=== PATIENT | male | born 1940 | race Caucasian/White ===

== ENCOUNTER → 2017-09-29 10:27 | Outpatient (CLI) | payer MEDICARE, OTHER ==
[2016-05-05 10:08] VITALS: BMI 28.8
[~2017-09-29 10:27] MED LIST: BAYER CHEWABLE81 MG PO; COZAAR50 MG PO; FLUTICASONE PRO16 GM NASAL; HYDROCODONE-APA1 TAB PO; LIPITOR40 MG PO; METAMUCIL PACKE1 PKT PO; PROBIOTIC1 EAC1 PO; TRILIPIX135 MG PO
== END | disposition home or self-care (01) ==
LOC: D.MRI 10:27
DX: M54.5 Low back pain (principal)

== ENCOUNTER 2017-12-31 05:00 | Day surgery (SDC) | payer MEDICARE, OTHER ==
[2017-12-30 11:43] LABS: HEMATOCRIT 42.2 % (42.0-54.0); HEMOGLOBIN 14.4 g/dL (13.5-17.5); MCH 35.4 pg (26.0-34.0); MCHC 34.1 g/dL (31.0-37.0); MCV 103.7 fL (80.0-100.0); MEAN PLATELET VOLUME 8.8 fL (7.4-10.4); RBC 4.07 10x6/uL (4.20-6.10); RDW 12.7 % (11.5-14.5)
[2017-12-30 11:58] LABS: INR 0.98 (0.85-1.17); PROTIME 12.6 SECONDS (11.6-15.0)
[~2017-12-31] VITALS: Ht 175.3 cm; Wt 95.3 kg
--- NOTE | ~2017-12-31 | OP ---
PATIENT NAME: JESUS ALBERTO KUMAR MEDICAL RECORD: [id number] :44 LOCATION:SHE ADMISSION DATE: SURGEON: MOODY SOLER MD DATE OF OPERATION: 12/31/2017 PREOPERATIVE DIAGNOSES: Lumbar spinal stenosis and foraminal stenosis at L4-L5 and L5-S1, right with right L5 and S1 radiculopathy secondary to lumbar spinal stenosis. PROCEDURE: Lumbar laminectomy, medial facetectomy and foraminotomy at L4-L5 and L5-S1 on the right with METRx retractor. DESCRIPTION OF TECHNIQUE: After induction of general endotracheal anesthesia, the patient was rolled prone on a Naren frame. Lumbar spine was prepped and draped in usual sterile fashion. Fluoroscopic x-ray and spinal needle localized at L4-L5 interspace on the right side. A series of dilators were used to advance a METRx retractor at L4-L5 interspace. This was confirmed with fluoroscopic x-ray. A Midas Usama drill and microscope were used to perform a laminectomy, medial facetectomy, and foraminotomy at L4-L5 and L5-S1 on the right. Hypertrophied ligamentum flavum was removed within the canal as well as the foramina at both levels. The L5 nerve roots followed from its transiting portion to its existing portion. It was decompressed throughout its entire course. The S1 nerve root was decompressed within its transiting course. Meticulous hemostasis was maintained throughout the wound, but excellent decompression of both nerves was accomplished. The METRx retractor was removed. The fascia was closed with 2-0 Vicryl suture. The subdermal layer was closed with 3-0 Vicryl suture. The skin was closed with dany. A sterile dressing was applied to the wound. The patient was awakened in good condition and taken to recovery. All counts were reported as correct. Estimated blood loss was minimal. TRANSINT:[id number] Voice Confirmation ID: [id number] DOCUMENT ID: [id number] MOODY SOLER MD at 2233 CC: [id number] DICTATION DATE: 01/10/18 1050 AUTOMOTIVE TITLE CLERK: 01/10/18 1146 [facility] 12/31/17 [place] [address]
[~2017-12-31 05:00] MED LIST changes: +COLACE50 MG/5 ML
[2017-12-31 06:09] VITALS: Ht 175.3 cm; Wt 95.3 kg
[2018-01-01] MEDS ORDERED: HYDROCODONE-APA1 TAB PO (19:40)
[2018-01-01] MEDS ORDERED: PERI-COLACE TAB1 TAB PO (23:04)
== END 2017-12-31 11:00 | disposition home or self-care (01) ==
LOC: D.OPS 05:00 → D.PAN 07:30 → D.OPS 11:00
PROVIDERS: Anesthesiology
DX: M48.061 Spinal stenosis, lumbar region without neurogenic claudication (principal); M48.07 Spinal stenosis, lumbosacral region; M54.16 Radiculopathy, lumbar region; Z01.812 Encounter for preprocedural laboratory examination

== ENCOUNTER 2018-01-01 19:20 | Inpatient (IN) | payer MEDICARE, OTHER ==
[~2018-01-01] VITALS: Ht 175.3 cm; Wt 95.5 kg
[2018-01-01] MEDS ORDERED: HYDROCODONE-APA1 TAB PO (19:40)
[2018-01-01 20:15] LABS: BASOPHILS 0.2 % (0-2); EOSINOPHILS 0.6 % (0-7); HEMATOCRIT 39.9 % (42.0-54.0); HEMOGLOBIN 13.3 g/dL (13.5-17.5); IMMATURE GRANULOCYTES 0.2 % (0-5); LYMPHOCYTES 19.6 % (15-50); MCH 35.2 pg (26.0-34.0); MCHC 33.3 g/dL (31.0-37.0); MCV 105.6 fL (80.0-100.0); MEAN PLATELET VOLUME 8.6 fL (7.4-10.4); MONOCYTES 9.9 % (2-11); NEUTROPHILS 69.5 % (40-80); PLATELET COUNT 265 10x3/uL (130-400); RBC 3.78 10x6/uL (4.20-6.10); RDW 12.7 % (11.5-14.5); WBC 9.5 10x3/uL (4.8-10.8)
[2018-01-01 20:28] LABS: APPEARANCE CLEAR (CLEAR); BILIRUBIN NEGATIVE (NEGATIVE); COLOR YELLOW (YELLOW); GLUCOSE NEGATIVE (NEGATIVE); KETONE NEGATIVE (NEGATIVE); NITRITE NEGATIVE (NEGATIVE); PROTEIN NEGATIVE (NEGATIVE); UROBILINOGEN NORMAL (NORMAL)
[2018-01-01 20:31] LABS: ALBUMIN 3.6 g/dL (3.4-5.0); ANION GAP 12.2 mmol/L (8-16); BILIRUBIN - TOTAL 0.34 mg/dL (0.2-1.3); CALCIUM 10.3 mg/dL (8.5-10.1); CARBON DIOXIDE 29.1 mmol/L (21.0-32.0); CREATININE - SERUM 1.2 mg/dL (0.6-1.3); POTASSIUM - SERUM 4.3 mmol/L (3.5-5.1); PROTEIN - SERUM 7.5 g/dL (6.4-8.2)
[2018-01-01 21:05] VITALS: BP 136/80
[2018-01-01 22:06] VITALS: BP 130/66
[2018-01-01] MEDS ORDERED: PERI-COLACE TAB1 TAB PO (23:04)
[2018-01-01 23:25] VITALS: BP 128/85; Ht 175.3 cm; Wt 95.5 kg
[2018-01-01 23:26] VITALS: BP 128/85
[2018-01-02 04:00] VITALS: BP 112/60
[2018-01-02 08:00] VITALS: BP 123/68
[2018-01-02 10:06] LABS: BASOPHILS 0.3 % (0-2); HEMATOCRIT 36.5 % (42.0-54.0); HEMOGLOBIN 12.2 g/dL (13.5-17.5); IMMATURE GRANULOCYTES 0.3 % (0-5); LYMPHOCYTES 17.8 % (15-50); MCH 35.1 pg (26.0-34.0); MCHC 33.4 g/dL (31.0-37.0); MCV 104.9 fL (80.0-100.0); MEAN PLATELET VOLUME 8.4 fL (7.4-10.4); MONOCYTES 10.3 % (2-11); NEUTROPHILS 70.3 % (40-80); PLATELET COUNT 246 10x3/uL (130-400); RBC 3.48 10x6/uL (4.20-6.10); WBC 7.9 10x3/uL (4.8-10.8)
[2018-01-02 10:21] LABS: ALBUMIN 3.2 g/dL (3.4-5.0); BILIRUBIN - TOTAL 0.3 mg/dL (0.2-1.3); CALCIUM 9.4 mg/dL (8.5-10.1); CARBON DIOXIDE 30.1 mmol/L (21.0-32.0); CREATININE - SERUM 1.2 mg/dL (0.6-1.3); POTASSIUM - SERUM 4.1 mmol/L (3.5-5.1); PROTEIN - SERUM 6.9 g/dL (6.4-8.2)
[2018-01-02 12:50] VITALS: BP 122/70
[2018-01-02 15:36] VITALS: BP 126/67
[2018-01-02 16:34] LABS: ERYTHROCYTE SEDIMENTATION RATE 49 mm/hr (0-20)
[2018-01-02 19:47] VITALS: BP 116/73
[2018-01-02 23:37] VITALS: BP 112/65
[2018-01-03 03:39] VITALS: BP 116/43
[2018-01-03 05:11] LABS: BASOPHILS 0 % (0-2); EOSINOPHILS 0.1 % (0-7); HEMATOCRIT 37.7 % (42.0-54.0); HEMOGLOBIN 12.7 g/dL (13.5-17.5); IMMATURE GRANULOCYTES 0.1 % (0-5); LYMPHOCYTES 8.4 % (15-50); MCH 35.1 pg (26.0-34.0); MCHC 33.7 g/dL (31.0-37.0); MCV 104.1 fL (80.0-100.0); MEAN PLATELET VOLUME 8.5 fL (7.4-10.4); MONOCYTES 2.8 % (2-11); NEUTROPHILS 88.6 % (40-80); RBC 3.62 10x6/uL (4.20-6.10); RDW 12.6 % (11.5-14.5); WBC 7.5 10x3/uL (4.8-10.8)
[2018-01-03 05:31] LABS: PLATELET COUNT 304 10x3/uL (130-400)
[2018-01-03 05:40] LABS: ALBUMIN 3.1 g/dL (3.4-5.0); ANION GAP 11.8 mmol/L (8-16); BILIRUBIN - TOTAL 0.28 mg/dL (0.2-1.3); CALCIUM 9.2 mg/dL (8.5-10.1); CARBON DIOXIDE 29.7 mmol/L (21.0-32.0); CREATININE - SERUM 1.1 mg/dL (0.6-1.3); POTASSIUM - SERUM 4.5 mmol/L (3.5-5.1); PROTEIN - SERUM 7.4 g/dL (6.4-8.2)
[2018-01-03 08:35] VITALS: BP 135/77
[2018-01-03 13:59] VITALS: BP 124/70
[2018-01-03 16:44] VITALS: BP 117/56
[2018-01-03 21:09] VITALS: BP 104/74
[2018-01-03 23:39] VITALS: BP 125/71
[2018-01-04 03:44] VITALS: BP 115/57
[2018-01-04 03:47] VITALS: BP 112/67
[2018-01-04 05:56] LABS: BASOPHILS 0 % (0-2); EOSINOPHILS 0 % (0-7); IMMATURE GRANULOCYTES 0.1 % (0-5); LYMPHOCYTES 12.1 % (15-50); MCH 34.3 pg (26.0-34.0); MCHC 33.3 g/dL (31.0-37.0); MCV 102.9 fL (80.0-100.0); MEAN PLATELET VOLUME 8.7 fL (7.4-10.4); MONOCYTES 9.5 % (2-11); NEUTROPHILS 78.3 % (40-80); PLATELET COUNT 364 10x3/uL (130-400); RDW 12.6 % (11.5-14.5)
[2018-01-04 06:17] LABS: WBC 9.7 10x3/uL (4.8-10.8)
[2018-01-04 06:41] LABS: ALBUMIN 2.8 g/dL (3.4-5.0); ANION GAP 7.5 mmol/L (8-16); BILIRUBIN - TOTAL 0.25 mg/dL (0.2-1.3); CALCIUM 10.1 mg/dL (8.5-10.1); CARBON DIOXIDE 32.8 mmol/L (21.0-32.0); CREATININE - SERUM 1.2 mg/dL (0.6-1.3); POTASSIUM - SERUM 4.3 mmol/L (3.5-5.1); PROTEIN - SERUM 6.6 g/dL (6.4-8.2)
[2018-01-04 08:37] VITALS: BP 126/67
[2018-01-04] MEDS ORDERED: MEDROL DOSE PACK4 MG PO (12:47)
[2018-01-04] MEDS ORDERED: DOXYCYCLINE HY100 M2 PO (12:48)
== END 2018-01-04 14:01 | disposition home or self-care (01) | DRG 864 ==
LOC: D.ER 19:20 → D.MS 21:41 → D.EDHOLD 21:41 → D.MS 21:46
PROVIDERS: Family Medicine
DX: R50.82 Postprocedural fever (principal); I10 Essential (primary) hypertension; E78.5 Hyperlipidemia, unspecified; K21.9 Gastro-esophageal reflux disease without esophagitis; M62.830 Muscle spasm of back; Z98.890 Other specified postprocedural states; Z87.891 Personal history of nicotine dependence

== ENCOUNTER → 2018-02-15 09:52 | Outpatient (CLI) | payer MEDICARE, OTHER ==
[2018-01-01 23:25] VITALS: BMI 31.0
[~2018-02-15 09:52] MED LIST changes: +DOXYCYCLINE HY100 M2 PO; +MEDROL DOSE PACK4 MG PO; +PERI-COLACE TAB1 TAB PO
== END | disposition home or self-care (01) ==
LOC: D.RAD 09:52
DX: J01.90 Acute sinusitis, unspecified (principal)

== ENCOUNTER 2018-09-15 05:20 | Day surgery (SDC) | payer MEDICARE, OTHER ==
[2018-09-14 13:43] LABS: BASOPHILS 0.3 % (0-2); EOSINOPHILS 3.5 % (0-7); HEMATOCRIT 37.4 % (42.0-54.0); HEMOGLOBIN 12.5 g/dL (13.5-17.5); MCH 35.4 pg (26.0-34.0); MCHC 33.4 g/dL (31.0-37.0); MCV 105.9 fL (80.0-100.0); MEAN PLATELET VOLUME 8.4 fL (7.4-10.4); MONOCYTES 8.4 % (2-11); NEUTROPHILS 59.8 % (40-80); RBC 3.53 10x6/uL (4.20-6.10); RDW 12.5 % (11.5-14.5); WBC 6.3 10x3/uL (4.8-10.8)
[2018-09-14 13:51] LABS: PLATELET COUNT 211 10x3/uL (130-400)
[2018-09-14 13:55] LABS: ANION GAP 10.8 mmol/L (8-16); CALCIUM 9.4 mg/dL (8.5-10.1); CARBON DIOXIDE 31.6 mmol/L (21.0-32.0); CREATININE - SERUM 1.4 mg/dL (0.6-1.3); POTASSIUM - SERUM 4.4 mmol/L (3.5-5.1)
[2018-09-14 14:01] LABS: APTT 29.2 SECONDS (22.8-39.4); INR 1.06 (0.85-1.17); PROTIME 13.3 SECONDS (11.6-15.0)
[~2018-09-15] VITALS: Ht 175.3 cm; Wt 97.5 kg
--- NOTE | ~2018-09-15 | OP ---
PATIENT NAME: JESUS ALBERTO KUMAR MEDICAL RECORD: [id number] :44 LOCATION:SHE ADMISSION DATE: SURGEON: MOODY SOLER MD DATE OF OPERATION: 09/15/2018 DATE OF SERVICE: 09/15/2018 PREOPERATIVE DIAGNOSIS: Lumbar spinal stenosis at L3-L4 and L4-5 with right L3 and L4 radiculopathy. POSTOPERATIVE DIAGNOSIS: Lumbar spinal stenosis at L3-L4 and L4-5 with right L3 and L4 radiculopathy. PROCEDURE: Lumbar laminectomy, medial facetectomy and foraminotomy, L3-L4 and L4-L5 with redo L4-L5 on the right. PRIMARY CARE DOCTOR: Miguel العلي MD DESCRIPTION OF TECHNIQUE: After induction of general endotracheal anesthesia, the patient was rolled prone on a Naren frame. Lumbar spine was prepped and draped in the usual sterile fashion. Fluoroscopic x-ray and spinal needle localized the L3-L4 interspace on the right side. After infiltration of 1:100,000 epinephrine and lidocaine 1%, a stab incision was created with a #11 blade, a series of dilators were used to advance a METRx retractor at L3-L4 interspace on the right side. The level was confirmed with fluoroscopic x-ray. A microscope and Midas Usama drill were used to perform laminotomy, medial facetectomy and foraminotomy at L3-L4 on the right. Hypertrophied ligamentum flavum was removed with Cloward rongeurs. Next, dissection took place inferiorly at the L4-L5 interspace. The previous laminectomy was enlarged with Midas Usama drill under microscope illumination. Scar tissue was removed. Following this, the L3, L4 and L5 nerve roots appeared to be decompressed well. Meticulous hemostasis was maintained throughout the wound with the wounds irrigated with copious amounts of Ancef irrigant solution. The fascia was closed with 2-0 Vicryl suture. Subdermal layer was closed with 3-0 Vicryl suture. The skin was reapproximated with dany. A sterile dressing was applied to the wound. The patient was awakened in good condition, taken to recovery. All counts were reported as correct. Estimated blood loss was minimal. TRANSINT:[id number] Voice Confirmation ID: [id number] DOCUMENT ID: [id number] MOODY SOLER MD CC: [id number] DICTATION DATE: 09/26/18813 NEWS COMMENTATOR: 09/26/18 0906 [facility] 09/15/18 [facility] [address] [place] [address]
[~2018-09-15 05:20] MED LIST changes: +ADVIL200 MG PO; +DAYQUIL; +NYQUIL; +VITAMIN MULTI
[2018-09-15 06:08] VITALS: BP 120/73; Ht 175.3 cm; Wt 97.5 kg
[2018-09-15] MEDS ORDERED: HYDROCODON-ACE1 EA10 PO (12:27)
--- NOTE | 2018-09-15 13:30 | NUR ---
HOB RAISED, PATIENT MORE ALERT, DENIES PAIN. PATIENT CONTINUES FREQUENT BELCHING BUT DENIES NAUSEA, TOLERATING CLEAR LIQUIDS, DECLINES ANY FURTHER ADVANCEMENT OF DIET. THIS NURSE RECOMMENDS PATIENT SLOWLY ADVANCE DIET TOLERATED OVER THE COURSE OF THE DAY.
--- NOTE | 2018-09-15 13:50 | NUR ---
PATIENT AMBULATES AROUND ROOM WITH STAND-BY ASSIST OF THIS NURSE, AMBULATES WITHOUT UNSTEADINESS. PIV DC'D WITH TIP INTACT. PATIENT DRESSING IN PERSONAL CLOTHING WITH SPOUSE ASSISTANCE 4844 DISCHARGE INSTRUCTIONS REVIEWED WITH PATIENT AND SPOUSE, DISCHARGED HOME VIA WHEELCHAIR TO PRIVATE VEHICLE WITH SPOUSE
== END 2018-09-15 13:55 | disposition home or self-care (01) ==
LOC: D.OPS 05:20 → D.PAN 07:30 → D.OPS 07:30
PROVIDERS: Anesthesiology; ATTEND Neurological Surgery
DX: M48.061 Spinal stenosis, lumbar region without neurogenic claudication (principal); M54.16 Radiculopathy, lumbar region; Z01.812 Encounter for preprocedural laboratory examination

== ENCOUNTER → 2018-11-15 13:02 | Outpatient (CLI) | payer MEDICARE, OTHER ==
[2018-09-15 06:08] VITALS: BMI 31.8
[~2018-11-15 13:02] MED LIST changes: +HYDROCODON-ACE1 EA10 PO
== END | disposition home or self-care (01) ==
LOC: D.RAD 10-31 13:00 → D.US 10-31 13:00 → D.RAD 11-14 08:30
PROVIDERS: ATTEND Internal Medicine Gastroenterology
DX: K64.0 First degree hemorrhoids (principal); K57.30 Diverticulosis of large intestine without perforation or abscess without bleeding; K62.1 Rectal polyp

== ENCOUNTER → 2019-09-26 08:09 | Outpatient (CLI) | payer MEDICARE, OTHER ==
[2018-09-15 06:08] VITALS: BMI 31.8
--- NOTE | ~2019-09-26 | HEMODYNAMI ---
PATIENT:JESUS ALBERTO KUMAR MEDICAL RECORD: [id number] : 44 [id number] ADMISSION DATE: 09/26/19 Generatedon:09/26/20199:17 Patient name: JESUS ALBERTO KUMAR Patient #: [id number] SSN: : 1940 Date of study: 09/26/2019 Page: Of Hemodynamic Procedure Report Patient Data Patient Demographics Procedure consent was obtained First Name: JESUS ALBERTO Gender: Male Last Name: JOSÉ : 1940 [facility] Initial: TORRIE Age: 79 year(s) Patient #: [id number] Race: Additional ID: [id number] Contact details Address: [address] [place] [address] State: [place] City: [facility] Zip code: [address] Past Medical History Allergies: No known allergies Admission Admission Data Admission Date: 09/26/2019 Admission Time: 8:09 Procedure Procedure Types Cath Procedure Peripheral Cath Diagnostic Procedure Miscellaneous Aspiration/Injection (Joint) Procedure Description Procedure Date Procedure Date: 09/26/2019 Procedure Start Time: 8:59 Procedure Staff Name Function Babak Cerna MD Performing Physician Antoine Cabrera RT Monitor Procedure Data Cath Procedure Fluoroscopy Diagnostic fluoroscopy Total fluoroscopy Time: 0.9 time: 0.9 min min Diagnostic fluoroscopy Total fluoroscopy dose: 7 dose: 7 mGy mGy Hemodynamics Rest Pre Cath Intra NCS Post Cath Procedure Log Time Note 8:48:32 Antoine Cabrera RT (R) (CV) sent for patient. Start room use. 8:53:09 Time tracking: Regular hours (M-F 7:00 - 5:00) 8:53:16 Patient received from Other to IR Alert and oriented. Tansferred to table in Supine position. 8:53:19 Signed procedure consent form obtained from patient. 8:53:21 Correct patient and procedure confirmed by team. 8:53:23 Full Disclosure recording started 8:53:23 8:53:24 Pre-procedure instructions explained to patient. 8:53:25 Pre-op teaching completed and patient verbalized understanding. 8:53:38 Patient allergic to No known allergies 8:53:53 Is patient on blood thinner?No 8:54:02 Bilateral groins area was prepped with betadine and draped in sterile fashion 8:58:40 Physician arrived 8:58:41 --------ALL STOP TIME OUT------ 8:58:41 Final Timeout: patient, procedure, and site verified with staff and physician. All members of the team are in agreement. 8:58:44 Bilateral groins site verified by team. 8:58:49 Sedation plan: Local Anesthetic Medication:Lidocaine 8:59:03 Procedure started. 8:59:31 RIGT HIP INJECTED WITH 1% LIDOCAINE BY 8:59:40 SAFE-T BX TRAY opened to sterile field. 8:59:41 SAFE-T BX TRAY opened to sterile field. 9:08:22 RT HIP STABLE AND BANDAIDE APPLIED 9:08:40 LEFT HIP INJECTED 1% LIDOCAINE BY DR CERNA 9:14:24 10 CC ISOVUE 200 INJECTED TOTAL 9:16:33 Procedure ended.(Physican Out) 9:16:39 Fluoroscopy time 00.90 minutes. 9:16:43 Flurop Dose total: 7 9:16:43 Fluoroscopy dose: 7 mGy 9:17:11 BANDIADE APPLIED TO LEFT GROIN SITE STABLE PT SENT HOME Device Usage Item Manufacture Quantity Catalog Hospital Part Current Minimal Lot# / Name Number Charge Number Stock Stock Serial# Code SAFE-T Consensus Point 2 [id number] BX TRAY Signature Audit [place] Stage Time Signature Unsigned Intra-Procedure 09/26/2019 [facility] 9:17:37 [facility] [address] [place] [address]
== END | disposition home or self-care (01) ==
LOC: D.RAD 08:09
PROVIDERS: ATTEND Orthopaedic Surgery
DX: M16.11 Unilateral primary osteoarthritis, right hip (principal)

== ENCOUNTER → 2019-12-14 20:18 | Outpatient (CLI) | payer MEDICARE, OTHER ==
[2018-09-15 06:08] VITALS: BMI 31.8
== END | disposition home or self-care (01) ==
LOC: D.LABREF 20:18
PROVIDERS: ATTEND Orthopaedic Surgery
DX: M16.12 Unilateral primary osteoarthritis, left hip (principal)

== ENCOUNTER 2019-12-19 09:31 | Inpatient (IN) | payer MEDICARE, OTHER ==
[~2019-12-19] VITALS: Ht 175.3 cm; Wt 89.1 kg
[2019-12-19] MEDS ORDERED: FENOFIBRATE134 MG PO (16:36)
[2019-12-20 11:56] LABS: INR 0.97 (0.85-1.17); PROTIME 12.9 SECONDS (11.6-15.0)
[2019-12-20 11:57] LABS: APTT 28.6 SECONDS (22.8-39.4)
[2019-12-20 12:04] LABS: BASOPHILS 0.3 % (0-2); EOSINOPHILS 2.2 % (0-7); HEMATOCRIT 44.2 % (42.0-54.0); HEMOGLOBIN 14.5 g/dL (13.5-17.5); IMMATURE GRANULOCYTES 0.1 % (0-5); LYMPHOCYTES 26.8 % (15-50); MCH 34.7 pg (26.0-34.0); MCHC 32.8 g/dL (31.0-37.0); MCV 105.7 fL (80.0-100.0); MEAN PLATELET VOLUME 8.8 fL (7.4-10.4); MONOCYTES 7.9 % (2-11); NEUTROPHILS 62.7 % (40-80); PLATELET COUNT 247 10x3/uL (130-400); RBC 4.18 10x6/uL (4.20-6.10); RDW 13.5 % (11.5-14.5); WBC 6.8 10x3/uL (4.8-10.8)
[2019-12-20 12:13] LABS: BILIRUBIN NEGATIVE (NEGATIVE); GLUCOSE NEGATIVE (NEGATIVE); KETONE NEGATIVE (NEGATIVE); NITRITE NEGATIVE (NEGATIVE); UROBILINOGEN NORMAL (NORMAL)
[2019-12-20 13:04] LABS: CALCIUM 9.7 mg/dL (8.5-10.1); CARBON DIOXIDE 29.3 mmol/L (21.0-32.0); CREATININE - SERUM 1.4 mg/dL (0.6-1.3)
[2019-12-20 13:45] LABS: ANION GAP 10.7 mmol/L (8-16)
[2019-12-27] MEDS ORDERED: [UNRECOGNIZED DRUG - REMARK] (06:05)
[2019-12-27] MEDS ORDERED: PROBIOTIC250 MG PO (06:05)
[2019-12-27 06:06] VITALS: BP 124/65; BMI 29.0
--- NOTE | 2019-12-27 08:00 | NUR ---
THROUGH TRAFFIC KEPT TO A MINIMUM. HIBACLENS AND ALCOHOL USED TO PREP BEFORE CHLORAPREP. STERILE GOWNED AND GLOVED TO CHLORAPREP.
[2019-12-27 10:09] VITALS: BP 97/50
--- NOTE | 2019-12-27 10:30 | NUR ---
PATIENT IN BED WITH IV INTACT. NO COMPLAINTS OR SIGNS OF DISTRESS. VS STABLE. O2 ON AT 2 LNC. FAMILY AT BEDSIDE. CALLL IGHT WITHIN REACH. BSCDS ON AND WORKING.
[2019-12-27 10:50] LABS: ALBUMIN 3.1 g/dL (3.4-5.0); ANION GAP 8.5 mmol/L (8-16); BILIRUBIN - TOTAL 0.27 mg/dL (0.2-1.3); CALCIUM 8.7 mg/dL (8.5-10.1); CARBON DIOXIDE 27.8 mmol/L (21.0-32.0); CREATININE - SERUM 1.4 mg/dL (0.6-1.3); POTASSIUM - SERUM 5.3 mmol/L (3.5-5.1); PROTEIN - SERUM 5.4 g/dL (6.4-8.2)
[2019-12-27 10:51] LABS: BASOPHILS 0.1 % (0-2); EOSINOPHILS 0.6 % (0-7); HEMATOCRIT 35.9 % (42.0-54.0); HEMOGLOBIN 11.5 g/dL (13.5-17.5); IMMATURE GRANULOCYTES 0.1 % (0-5); LYMPHOCYTES 10.3 % (15-50); MCH 33.9 pg (26.0-34.0); MCV 105.9 fL (80.0-100.0); MEAN PLATELET VOLUME 8.7 fL (7.4-10.4); MONOCYTES 2.9 % (2-11); RBC 3.39 10x6/uL (4.20-6.10); RDW 13.6 % (11.5-14.5); WBC 9.5 10x3/uL (4.8-10.8)
[2019-12-27 10:53] LABS: PLATELET COUNT 190 10x3/uL (130-400)
[2019-12-27 10:54] VITALS: Ht 175.3 cm; Wt 89.1 kg
--- NOTE | 2019-12-27 12:00 | NUR ---
PATIENT TOLERATED REGULAR DIET. O2 TURNED DOWN AT THIS TIME. IV INTACT. VS STABLE. SATS AT 99%1 LNC
--- NOTE | 2019-12-27 14:30 | NUR ---
TEDS PLACED ON PATIENT AT THIS TIME ORDERED BY PHYSICIAN.
[2019-12-27 16:00] VITALS: BP 101/60
--- NOTE | 2019-12-27 16:21 | OP ---
PATIENT NAME: JESUS ALBERTO KUMAR MEDICAL RECORD: [id number] :44 LOCATION:D. D.1213 ADMISSION DATE:12/27/19 SURGEON: BABAK VALLE DO DATE OF OPERATION: 12/27/2019 PROCEDURE PERFORMED: Left total hip arthroplasty. PREOPERATIVE DIAGNOSIS: Left hip osteoarthritis. POSTOPERATIVE DIAGNOSIS: Left hip osteoarthritis. INDICATIONS: Mr. Kumar is a 79-year-old male who has tried all manner of nonoperative treatment including intra-articular injections in his hip and they worked for a while and then they stopped working. He wanted something done surgically. He was tired dealing with the pain. I informed him that we could do a total hip, but he would be a risk for infection, bleeding, fracture, damage to nerves and vessels in the area, continued pain, loss of range of motion, failure of implants, blood clots, and even and he signed a consent. SURGEON: Babak Valle DO DESCRIPTION OF PROCEDURE: The patient was taken to the operative suite, laid in supine position, given general anesthetic and intubated. He was given 2 grams of Ancef, 80 mg of gentamicin and a gram of TXA prior to starting. He was then moved to the [place] table. The left hip was then prepped and draped in sterile fashion. Timeout was performed and everyone was in agreeance with the correct side, site, patient and procedure. I then began by making an incision over the tensor fascia amaya muscle. Careful dissection was made down to the muscle, taken the fascia anteriorly and the muscle belly posteriorly and opened up the rectus interval. The rectus was then taken medial to the fascia amaya laterally, then opened the hip capsule and tied off the ascending branch of lateral femoral circumflex and coagulated with Aquamantys. I then opened up the capsule and tagged it, made the neck cut, removed the head and neck and put in the Charnley and remove the labrum and the pulvinar. I then began reaming and went up to a 56, impacted the cup and once the cup was impacted and the liner was put in as well. I then exposed the femur and began with a canal finder and cookie cutter and then broached up to an 18, 18 was trialed with -6 seemed to fit well. It was loose a little bit when folded out the trial, so we tried to go to a 20, 20 did not fit. I went with an 18 high-offset and a -3 neck, reduced it and it fit very well, it was good lengths compared to the right. I then put in 10% povidone iodine and 500 mL of normal saline solution, let it sit for 3 minutes, irrigated out with over a liter of normal saline and then put in Edelmira and vancomycin and tobramycin powder. The tensor fascia amaya was then closed with 0 Vicryl in [id number] in a running locking stitch. This was done by Brandon Lim, certified art therapist. Skin was then closed with 2-0 Vicryl in an inverted interrupted fashion, 4-0 Monocryl ran on the skin. Prineo glue was placed on the skin. He was then dressed with Telfa and Tegaderm. Awakened and taken to recovery in stable condition. Blood loss was approximately 300 mL. COMPLICATIONS: None. TRANSINT:[id number] Voice Confirmation ID: [id number] DOCUMENT ID: [id number] OPERATIVE REPORT [id number] JESUS ALBERTO KUMAR MICHAEL D, DO at 1621 CC: [id number] DICTATION DATE: 12/27/19 0849 PROFESSIONAL ORGANIZER: 12/27/19 1541 ADM IN [place] [id number] [place] [address]
--- NOTE | 2019-12-27 18:45 | NUR ---
PATIENT IN BED WITH IV INTACT. NO COMPLAINTS OR SIGNS OF DISTRESS. EXPLAINED TO PATIENT TO TRY TO VOID SOON. VERBALIZED UNDERSTANDING. STATED HE DOESNT HAVE AN URGE TO VOID AT THIS TIME, BUT WILL CONTINUE TO DRINK LIQUIDS. FAMILY AT BEDSIDE. CALL LIGHT WITHIN REACH.
--- NOTE | 2019-12-27 19:15 | NUR ---
ALERT RESTING IN BED DENIES PAIN OR NEEDS AT THIS TIME, SEE SHIFT ASSESSMENT, HAS NOT VOIDED SINCE SURGERY WANTS TO TRY SITTING OR STANDING BEFORE HAS TO HAVE IN AND OUT CATH, AGREED AND ASSISTED TO STAND AT BEDSIDE
[2019-12-27 20:00] VITALS: BP 86/45
--- NOTE | 2019-12-27 21:30 | NUR ---
IN AND OUT CATH DONE WITH RETURN OF 500 CC CLEAR OBDULIO COLORED URINE, TOLERATED WELL
--- NOTE | 2019-12-27 21:30 | NUR ---
BLADDER SCAN DONE AT 1999 SHOWING 796CC URINE, SITTING ON SIDE OF BED AT THIS TIME STILL ATTEMPTING TO VOID
[2019-12-27 22:00] VITALS: BP 103/52
[2019-12-27 23:36] VITALS: BP 91/47
[2019-12-28 04:00] VITALS: BP 88/44
[2019-12-28 05:46] LABS: BASOPHILS 0.1 % (0-2); EOSINOPHILS 0.1 % (0-7); HEMATOCRIT 33.4 % (42.0-54.0); HEMOGLOBIN 10.7 g/dL (13.5-17.5); IMMATURE GRANULOCYTES 0.1 % (0-5); LYMPHOCYTES 10.1 % (15-50); MCH 34.1 pg (26.0-34.0); MCV 106.4 fL (80.0-100.0); MEAN PLATELET VOLUME 8.9 fL (7.4-10.4); MONOCYTES 7.7 % (2-11); NEUTROPHILS 81.9 % (40-80); PLATELET COUNT 201 10x3/uL (130-400); RBC 3.14 10x6/uL (4.20-6.10); RDW 13.9 % (11.5-14.5); WBC 7.8 10x3/uL (4.8-10.8)
[2019-12-28 06:13] LABS: ALBUMIN 3.1 g/dL (3.4-5.0); ANION GAP 8.8 mmol/L (8-16); BILIRUBIN - TOTAL 0.35 mg/dL (0.2-1.3); CARBON DIOXIDE 27.8 mmol/L (21.0-32.0); CREATININE - SERUM 1.5 mg/dL (0.6-1.3); POTASSIUM - SERUM 4.6 mmol/L (3.5-5.1); PROTEIN - SERUM 5.6 g/dL (6.4-8.2)
[2019-12-28 06:34] VITALS: BP 105/49
[2019-12-28 07:27] VITALS: BP 93/55
--- NOTE | 2019-12-28 08:15 | NUR ---
PATIENT SITTING UP ON THE SIDE OF THE BED WITH IV INTACT. NO COMPLAINTS OR SIGNS OF DISTRESS. DRESSING TO LLE CDI. ICE PACK IN PALCE. FAMILY AT BEDSIDE. CALL LIGHT WITHINR EACH.
--- NOTE | 2019-12-28 08:35 | MORECARE ---
CASE MANAGEMENT DISCHARGE SUMMARY PATIENT: JESUS ALBERTO KUMAR UNIT: [id number] ADM DATE: 12/27/19 AGE: 79 : 42 SEX: M ROOM/BED: D.1213 AUTHOR: JENNIFER,DOC PHYSICIAN: REFERRING PHYSICIAN: TAMI VALLE DO DATE OF SERVICE: 12/28/19 Discharge Plan Patient Name: JESUS ALBERTO KUMAR Facility: [facility]:[place] : 1940 Planned Disposition: Home or Self Care Anticipated Discharge Date: Discharge Date: Expected LOS: Initial Reviewer: [email or web address] Initial Review Date: 12/27/2019 Generated: 12/28/19 9:35 am DCP- Discharge Planning Updated by [email or web address]: Yamilet White on 12/28/19 7:[address] Patient Name: JESUS ALBERTO KUMAR Admission Status: Elective Accout number: [id number] Admission Date: 12-27-2019 : 1940 Admission Diagnosis: Attending: TAMI VALLE Current LOS: 1 Anticipated DC Date: Planned Disposition: Home or Self Care Primary Insurance: MEDICARE A & B Discharge Planning Comments: CM met with patient to complete initial dc planning assessment. CM educated patient on the CM role and verbal consent given by patient to complete assessment. Patient lives at home with his where he is independent with his care. At discharge patient plans to return home and feels this is a safe discharge. CM discussed availability of home health, rehab services, and medical equipment. He would like to do out patient PT at [facility]. I will call and make his appointment and he will get a copy of the order. He does need a walker and a BSC. SILVESTRE signed with [employer]. IMM also went over and signed. Patient denied known discharge needs at this time. CM will continue to follow and will assist as needed with dc plans/needs. Order Desk Clerk: Yamilet White DCPIA - Discharge Planning Initial Assessment Updated by [email or web address]: Yamilet White on 12/28/19 8:31 am * Is the patient Alert and Oriented? Yes * How many steps to enter\exit or inside your home? * PCP BOB * Pharmacy [facility] * Preadmission Environment Home with Family * ADLs Independent * Equipment None * List name and contact numbers for known caregivers / representatives who currently or will assist patient after discharge: JAMES KUMAR (SPOUSE) [phone] * Verbal permission to speak to the caregivers and representatives has been obtained from the patient. N/A * Community resources currently utilized None * Additional services required to return to the preadmission environment? Yes * Can the patient safely return to the preadmission environment? Yes * Has this patient been hospitalized within the prior 30 days at any hospital? No Coverage Notice Reviewer: [id number] White Notice Issued Date-Time: 12/28/2019 7:10 Notice Type: Patient Choice Letter Notice Delivered To: Patient Relationship to Patient: Picture Painter Name: Delivery Method: HAND - Hand Delivered Nessa Days: Prior Verbal Notification: Recipient Understood Notice: Yes Recipient Signature: Yes Med Rec Note Co-signed by Attending: Coverage Notice Comment: silvestre [facility] Reviewer: [email or web address] White Notice Issued Date-Time: 12/28/2019 7:10 Notice Type: IM Discharge Notice Notice Delivered To: Patient Relationship to Patient: Picture Painter Name: Delivery Method: HAND - Hand Delivered Nessa Days: Prior Verbal Notification: Recipient Understood Notice: Yes Recipient Signature: Yes Med Rec Note Co-signed by Attending: Coverage Notice Comment: Patient Name: JESUS ALBERTO KUMAR Page [phone] at 0835 All edits/amendments must be made on the electronic document DICTATION DATE: 12/28/19834 MARKER MACHINE ATTENDANT: ANGELITA 12/28/19 0835 RPT#: [id number] DC DATE: STATUS: ADM IN [facility] [address] [place] [address] END OF REPORT
--- NOTE | 2019-12-28 08:42 | MORECARE ---
CASE MANAGEMENT DISCHARGE SUMMARY PATIENT: JESUS ALBERTO KUMAR UNIT: [id number] ADM DATE: 12/27/19 AGE: 79 : 42 SEX: M ROOM/BED: D.1213 AUTHOR: SAMEER RODRIGUEZ PHYSICIAN: REFERRING PHYSICIAN: TAMI VALLE DO DATE OF SERVICE: 12/28/19 Discharge Plan Patient Name: JESUS ALBERTO KUMAR Facility: [facility]:[place] : 1940 Planned Disposition: Home or Self Care Anticipated Discharge Date: Discharge Date: Expected LOS: Initial Reviewer: [email or web address] Initial Review Date: 12/27/2019 Generated: 12/28/19 9:41 am DCP- Discharge Planning Updated by [email or web address]: Yamilet White on 12/28/19 7:[address] I SET THE ORDER TO [facility] AND SPOKE WITH TALHA, THEY WILL DELIVER TO THE HOSPITAL PRIOR TO DISCHARGE DCP- Discharge Planning Updated by [email or web address]: Yamilet White on 12/28/19 7:[address] Patient Name: JESUS ALBERTO KUMAR Admission Status: Elective Accout number: [id number] Admission Date: 12-27-2019 : 1940 Admission Diagnosis: Attending: TAMI VALLE Current LOS: 1 Anticipated DC Date: Planned Disposition: Home or Self Care Primary Insurance: MEDICARE A & B Discharge Planning Comments: CM met with patient to complete initial dc planning assessment. CM educated patient on the CM role and verbal consent given by patient to complete assessment. Patient lives at home with his where he is independent with his care. At discharge patient plans to return home and feels this is a safe discharge. CM discussed availability of home health, rehab services, and medical equipment. He would like to do out patient PT at [facility]. I will call and make his appointment and he will get a copy of the order. He does need a walker and a BSC. SILVESTRE signed with Lopez/K[employer]. IMM also went over and signed. Patient denied known discharge needs at this time. CM will continue to follow and will assist as needed with dc plans/needs. Quality Control: Yamilet White DCPIA - Discharge Planning Initial Assessment Updated by [email or web address]: Yamilet White on 12/28/19 8:31 am * Is the patient Alert and Oriented? Yes * How many steps to enter\exit or inside your home? * PCP BOB * Pharmacy [facility] * Preadmission Environment Home with Family * ADLs Independent * Equipment None * List name and contact numbers for known caregivers / representatives who currently or will assist patient after discharge: JAMES KUMAR (SPOUSE) [phone] * Verbal permission to speak to the caregivers and representatives has been obtained from the patient. N/A * Community resources currently utilized None * Additional services required to return to the preadmission environment? Yes * Can the patient safely return to the preadmission environment? Yes * Has this patient been hospitalized within the prior 30 days at any hospital? No External [facility]iders [facility] Next Contact Date: Service Request Date: Service Type: Resolution: Reviewer: Comments: Coverage Notice Reviewer: [email or web address] Arely White Notice Issued Date-Time: 12/28/2019 7:10 Notice Type: Patient Choice Letter Notice Delivered To: Patient Relationship to Patient: Brand Marketing Coordinator Name: Delivery Method: HAND - Hand Delivered Nessa Days: Prior Verbal Notification: Recipient Understood Notice: Yes Recipient Signature: Yes Med Rec Note Co-signed by Attending: Coverage Notice Comment: silvestre LINN/MARIE Reviewer: [email or web address] Arely White Notice Issued Date-Time: 12/28/2019 7:10 Notice Type: IM Discharge Notice Notice Delivered To: Patient Relationship to Patient: Brand Marketing Coordinator Name: Delivery Method: HAND - Hand Delivered Nessa Days: Prior Verbal Notification: Recipient Understood Notice: Yes Recipient Signature: Yes Med Rec Note Co-signed by Attending: Coverage Notice Comment: Last DP export: 12/28/19 7:35 am Patient Name: JESUS ALBERTO KUMAR Page [phone] at 0842 All edits/amendments must be made on the electronic document DICTATION DATE: 12/28/19840 BLADE GRINDER: ANGELITA 12/28/19840 RPT#: [id number] DC DATE: STATUS: ADM IN [facility] [address] [place] [address] END OF REPORT
[2019-12-28 12:07] VITALS: BP 116/46
--- NOTE | 2019-12-28 12:59 | MORECARE ---
CASE MANAGEMENT DISCHARGE SUMMARY PATIENT: JESUS ALBERTO KUMAR UNIT: [id number] ADM DATE: 12/27/19 AGE: 79 : 42 SEX: M ROOM/BED: D.1213 AUTHOR: SAMEER RODRIGUEZ PHYSICIAN: REFERRING PHYSICIAN: TAMI VALLE DO DATE OF SERVICE: 12/28/19 Discharge Plan Patient Name: JESUS ALBERTO KUMAR Facility: [facility]:[place] : 1940 Planned Disposition: Home or Self Care Anticipated Discharge Date: Discharge Date: Expected LOS: Initial Reviewer: [email or web address] Initial Review Date: 12/27/2019 Generated: 12/28/19 1:59 pm Comments DCP- Discharge Planning Updated by [id number]: Yamilet White on 12/28/19 11:[address] PATIENT'S OP PT APPOINTMENT HAS BEEN MADE FOR WednesdayDecember @ 11:00 PATIENT WILL GET A COPY OF THIS IN HIS DC PACKET DCP- Discharge Planning Updated by [email or web address]: Yamilet White on 12/28/19 7:[address] I SET THE ORDER TO [facility] AND SPOKE WITH [facility], THEY WILL DELIVER TO THE HOSPITAL PRIOR TO DISCHARGE DCP- Discharge Planning Updated by [id number]: Yamilet hWite on 12/28/19 7:[address] Patient Name: JESUS ALBERTO KUMAR Admission Status: Elective Accout number: [id number] Admission Date: 12-27-2019 : 1940 Admission Diagnosis: Attending: TAMI VALLE Current LOS: 1 Anticipated DC Date: Planned Disposition: Home or Self Care Primary Insurance: MEDICARE A & B Discharge Planning Comments: CM met with patient to complete initial dc planning assessment. CM educated patient on the CM role and verbal consent given by patient to complete assessment. Patient lives at home with his where he is independent with his care. At discharge patient plans to return home and feels this is a safe discharge. CM discussed availability of home health, rehab services, and medical equipment. He would like to do out patient PT at [facility]. I will call and make his appointment and he will get a copy of the order. He does need a walker and a BSC. SILVESTRE signed with Lopez/Jack. IMM also went over and signed. Patient denied known discharge needs at this time. CM will continue to follow and will assist as needed with dc plans/needs. Service Car Operator: Yamilet White DCPIA - Discharge Planning Initial Assessment Updated by [email or web address]: Yamilet White on 12/28/19 8:31 am * Is the patient Alert and Oriented? Yes * How many steps to enter\exit or inside your home? * PCP BOB * Pharmacy [facility] * Preadmission Environment Home with Family * ADLs Independent * Equipment None * List name and contact numbers for known caregivers / representatives who currently or will assist patient after discharge: JAMES KUMAR (SPOUSE) [phone] * Verbal permission to speak to the caregivers and representatives has been obtained from the patient. N/A * Community resources currently utilized None * Additional services required to return to the preadmission environment? Yes * Can the patient safely return to the preadmission environment? Yes * Has this patient been hospitalized within the prior 30 days at any hospital? No Coverage Notice Reviewer: [id number] Arely White Notice Issued Date-Time: 12/28/2019 7:10 Notice Type: Patient Choice Letter Notice Delivered To: Patient Relationship to Patient: Xerox Machine Mechanic Name: Delivery Method: HAND - Hand Delivered Nessa Days: Prior Verbal Notification: Recipient Understood Notice: Yes Recipient Signature: Yes Med Rec Note Co-signed by Attending: Coverage Notice Comment: silvestre MATTHEWS Reviewer: [id number] Arely White Notice Issued Date-Time: 12/28/2019 7:10 Notice Type: IM Discharge Notice Notice Delivered To: Patient Relationship to Patient: Xerox Machine Mechanic Name: Delivery Method: HAND - Hand Delivered Nessa Days: Prior Verbal Notification: Recipient Understood Notice: Yes Recipient Signature: Yes Med Rec Note Co-signed by Attending: Coverage Notice Comment: Last DP export: 12/28/19 7:42 am Patient Name: JESUS ALBERTO KUMAR Page 06286 at 1259 All edits/amendments must be made on the electronic document DICTATION DATE: 12/28/19 1259 WEBSITE DESIGNER: ANGELITA 12/28/19 1259 RPT#: [id number] DC DATE: STATUS: ADM IN [place] [id number] [facility] [place] [address] END OF REPORT
[2019-12-28 16:15] VITALS: BP 96/52
--- NOTE | 2019-12-28 18:24 | NUR ---
PATIENT SITTING UP IN CHAIR WITH NO COMPLAINT OR SIGNS OF DISTRESS. IV INTACT. FAMILY AT BEDSIDE. CALL LIGHT WITHIN REACH.
--- NOTE | 2019-12-28 18:47 | CN ---
PATIENT NAME:JESUS ALBERTO KUMAR MEDICAL RECORD: [id number] : 44 LOCATION:[place] D.1213 ADMIT DATE: 12/27/19 ACCOUNT: [id number] CONSULTING PHYSICIAN: JENNIFER ROJAS MD REFERRING PHYSICIAN: BABAK VALLE DO DATE OF CONSULTATION: 12/27/2019 CONSULT IS REQUESTED BY: Babak Valle DO for medical management. HISTORY OF PRESENT ILLNESS: Mr. Kumar is a 79-year-old white male who I have followed for many years for hypertension, hyperlipidemia, and arthritis. He was admitted by Dr. Valle for elective left total hip arthroplasty today. He has undergone that this morning. PAST MEDICAL HISTORY: Hypertension, hyperlipidemia, and osteoarthritis. PAST SURGICAL HISTORY: L3-L4 laminectomy in August [address] Cherry. Cholecystectomy in 1996 and cyst removed off the spine by Dr. Cherry in 2009, and right elbow surgery by Dr. George in 2011. ALLERGIES: No known drug allergies. HOME MEDICATIONS: Include fenofibrate 134 mg once a day, atorvastatin 40 mg once a day, and losartan 50 mg once a day. HABITS: Former smoker. Drinks occasional alcohol. No illicit drug use. SOCIAL HISTORY: and retired. FAMILY HISTORY: Father at age 60 of some sort of blood-borne cancer. Mother at 76 of metastatic lung cancer. REVIEW OF SYSTEMS: GENERAL: No major weight changes. HEENT: No particular sinus or allergy problems. RESPIRATORY: No history of emphysema or COPD. CARDIAC: No known heart trouble. He was cleared by cardiology prior to the surgery. GASTROINTESTINAL: No significant heartburn, no diarrhea, or constipation. GENITOURINARY: No significant problems there. MUSCULOSKELETAL: He has some general osteoarthritis. NEUROLOGIC: No migraines. No seizures. PSYCHIATRIC: Denies depression or melancholia. PHYSICAL EXAMINATION: VITAL SIGNS: Today, temperature 97.0, pulse 61, respirations 16, blood pressure is little low at 97/50, and O2 sat 99%. GENERAL: He is awake and alert. He does not appear to be in acute distress at this time. is at bedside. HEENT: Grossly within normal limits. NECK: Supple. HEART: Regular rate and rhythm. LUNGS: Clear. ABDOMEN: Soft, flat, nontender. EXTREMITIES: He has a dressing over the left hip, no edema. CONSULT REPORT [id number] ALBERTO ROBLES ASSESSMENT: 1. Hypertension 2. Osteoarthritis, status post left total hip arthroplasty by Dr. Valle today. PLAN: We will monitor his blood pressure. Continue his usual home medications. Other tests or procedures as warranted. TRANSINT:[id number] Voice Confirmation ID: [id number] DOCUMENT ID: [id number] JENNIFER ROJAS MD at 1847 CC: [id number] DICTATION DATE: 12/27/19 185 DIRECTOR OF STUDENT AFFAIRS: 12/28/19 0407 [facility] IN [place] [id number] [place] [id number]
[2019-12-28 20:00] VITALS: BP 121/49
--- NOTE | 2019-12-28 20:10 | NUR ---
ALERT SITTING UP IN BED DENIES PAIN OR NEEDS AT THIS TIME, AT BEDSIDE, SEE SHIFT ASSESSMENT, CALL LIGHT IN REACH
[2019-12-29 05:39] VITALS: BP 117/59
[2019-12-29 05:59] LABS: ANION GAP 8.6 mmol/L (8-16); BILIRUBIN - TOTAL 0.57 mg/dL (0.2-1.3); CALCIUM 8.4 mg/dL (8.5-10.1); CARBON DIOXIDE 28.3 mmol/L (21.0-32.0); CREATININE - SERUM 1.3 mg/dL (0.6-1.3); PROTEIN - SERUM 5.7 g/dL (6.4-8.2)
[2019-12-29 06:01] LABS: POTASSIUM - SERUM 3.9 mmol/L (3.5-5.1)
[2019-12-29 06:24] LABS: BASOPHILS 0.1 % (0-2); EOSINOPHILS 1.5 % (0-7); HEMATOCRIT 31.1 % (42.0-54.0); HEMOGLOBIN 10.2 g/dL (13.5-17.5); IMMATURE GRANULOCYTES 0.3 % (0-5); MCH 34.3 pg (26.0-34.0); MCHC 32.8 g/dL (31.0-37.0); MCV 104.7 fL (80.0-100.0); MEAN PLATELET VOLUME 8.9 fL (7.4-10.4); MONOCYTES 6.2 % (2-11); NEUTROPHILS 74.9 % (40-80); PLATELET COUNT 187 10x3/uL (130-400); RBC 2.97 10x6/uL (4.20-6.10); RDW 13.9 % (11.5-14.5); WBC 6.8 10x3/uL (4.8-10.8)
[2019-12-29 07:46] VITALS: BP 136/57
[2019-12-29] MEDS ORDERED: KEFLEX500 MG PO (09:38)
[2019-12-29] MEDS ORDERED: HYDROCODON-ACE1 EA10 PO (09:38)
[2019-12-29] MEDS ORDERED: ELIQUIS2.5 MG PO (09:38)
--- NOTE | 2019-12-29 13:15 | NUR ---
REPORT CALLED TO REHAB AT THIS TIME.
--- NOTE | 2019-12-29 13:51 | NUR ---
PATIENT RECIEVED DC INSTRUCTIONGS. VERBALIZED UNDERSTANDING. FAMILY AT SIDE. NO QUESTIONS AT THIS TIME. ESCORTED PATIENT IN WC TO REHAB WITH PERSONAL BELONGINGS AT THIS TIME.
--- NOTE | 2019-12-29 16:22 | MORECARE ---
CASE MANAGEMENT DISCHARGE SUMMARY PATIENT: JESUS ALBERTO KUMAR UNIT: [id number] ADM DATE: 12/27/19 AGE: 79 : 42 SEX: M ROOM/BED: D.1213 AUTHOR: SAMEER RODRIGUEZ PHYSICIAN: REFERRING PHYSICIAN: TAMI VALLE DO DATE OF SERVICE: 12/29/19 Discharge Plan Patient Name: JESUS ALBERTO KUMAR Facility: [facility]:[place] : 1940 Planned Disposition: Home or Self Care Anticipated Discharge Date: Discharge Date: 12/29/2019 Expected LOS: Initial Reviewer: [email or web address] Initial Review Date: 12/27/2019 Generated: 12/29/19 5:22 pm Comments DCP- Discharge Planning Updated by [id number]: Yamilet White on 12/28/19 11:[address] PATIENT'S OP PT APPOINTMENT HAS BEEN MADE FOR WednesdayDecember @ 11:00 PATIENT WILL GET A COPY OF THIS IN HIS DC PACKET DCP- Discharge Planning Updated by [email or web address]: Yamilet White on 12/28/19 7:[address] I SET THE ORDER TO [facility] AND SPOKE WITH [facility], THEY WILL DELIVER TO THE HOSPITAL PRIOR TO DISCHARGE DCP- Discharge Planning Updated by [id number]: Yamilet White on 12/28/19 7:[address] Patient Name: JESUS ALBERTO KUMAR Admission Status: Elective Accout number: [id number] Admission Date: 12-27-2019 : 1940 Admission Diagnosis: Attending: TAMI VALLE Current LOS: 1 Anticipated DC Date: Planned Disposition: Home or Self Care Primary Insurance: MEDICARE A & B Discharge Planning Comments: CM met with patient to complete initial dc planning assessment. CM educated patient on the CM role and verbal consent given by patient to complete assessment. Patient lives at home with his where he is independent with his care. At discharge patient plans to return home and feels this is a safe discharge. CM discussed availability of home health, rehab services, and medical equipment. He would like to do out patient PT at [facility]. I will call and make his appointment and he will get a copy of the order. He does need a walker and a BSC. SILVESTRE signed with Lopez/Jack. IMM also went over and signed. Patient denied known discharge needs at this time. CM will continue to follow and will assist as needed with dc plans/needs. Doffer: Yamilet White DCPIA - Discharge Planning Initial Assessment Updated by [id number]: Yamilet White on 12/28/19 8:31 am * Is the patient Alert and Oriented? Yes * How many steps to enter\exit or inside your home? * PCP BOB * Pharmacy [facility] * Preadmission Environment Home with Family * ADLs Independent * Equipment None * List name and contact numbers for known caregivers / representatives who currently or will assist patient after discharge: JAMES KUMAR (SPOUSE) [phone] * Verbal permission to speak to the caregivers and representatives has been obtained from the patient. N/A * Community resources currently utilized None * Additional services required to return to the preadmission environment? Yes * Can the patient safely return to the preadmission environment? Yes * Has this patient been hospitalized within the prior 30 days at any hospital? No Coverage Notice Reviewer: [email or web address] Arely White Notice Issued Date-Time: 12/28/2019 7:10 Notice Type: Patient Choice Letter Notice Delivered To: Patient Relationship to Patient: Chief Digital Officer Name: Delivery Method: HAND - Hand Delivered Nessa Days: Prior Verbal Notification: Recipient Understood Notice: Yes Recipient Signature: Yes Med Rec Note Co-signed by Attending: Coverage Notice Comment: silvestre LINN/KINEKenan Reviewer: [email or web address] Arely White Notice Issued Date-Time: 12/28/2019 7:10 Notice Type: IM Discharge Notice Notice Delivered To: Patient Relationship to Patient: Chief Digital Officer Name: Delivery Method: HAND - Hand Delivered Nessa Days: Prior Verbal Notification: Recipient Understood Notice: Yes Recipient Signature: Yes Med Rec Note Co-signed by Attending: Coverage Notice Comment: Last DP export: 12/28/19 11:59 am Patient Name: JESUS ALBERTO KUMAR Page 80220 at 1622 All edits/amendments must be made on the electronic document DICTATION DATE: 12/29/191621 PUBLIC HEALTH EDUCATOR: ANGELITA 12/29/191621 RPT#: [id number] DC DATE:12/29/19 STATUS: DIS IN [facility] [address] [place] [address] END OF REPORT
== END 2019-12-29 13:56 | DRG 470 ==
LOC: D.M3 12-27 05:40 → D.SDCHOLD 12-27 05:40 → D.M3 12-27 09:40 → D.SDCHOLD 12-27 10:00 → D.M3 12-29 13:56
PROVIDERS: Family Medicine Adult Medicine; ADMIT Orthopaedic Surgery; ATTEND Orthopaedic Surgery
PROC: 0SRB0JZ Replacement of Left Hip Joint with Synthetic Substitute, Open Approach (ICD-10-PCS; principal; 2019-12-27 07:45)
DX: M16.12 Unilateral primary osteoarthritis, left hip (principal); I10 Essential (primary) hypertension; E78.5 Hyperlipidemia, unspecified; K21.9 Gastro-esophageal reflux disease without esophagitis

== ENCOUNTER → 2019-12-26 10:01 | Outpatient (CLI) | payer MEDICARE, OTHER ==
[2018-09-15 06:08] VITALS: BMI 31.8
[~2019-12-26 10:01] MED LIST changes: +FENOFIBRATE134 MG PO; +PROBIOTIC250 MG PO; +[UNRECOGNIZED DRUG - REMARK]
== END | disposition home or self-care (01) ==
LOC: D.HCCARDIO 10:01
PROVIDERS: ATTEND Internal Medicine Cardiovascular Disease
DX: Z01.810 Encounter for preprocedural cardiovascular examination (principal)

== ENCOUNTER 2019-12-29 13:10 | Inpatient (IN) | payer MEDICARE, OTHER ==
[~2019-12-29] VITALS: Ht 175.3 cm; Wt 88.0 kg
[~2019-12-29 13:10] MED LIST changes: +ELIQUIS2.5 MG PO; +KEFLEX500 MG PO
--- NOTE | 2019-12-29 15:58 | NUR ---
RESTING IN BED WITH AT BEDSIDE, DENIES ANY NEEDS AT THIS TIME, C/L AND FLUIDS IN REACH.
[2019-12-29 16:21] VITALS: BP 119/58; BMI 28.7
--- NOTE | 2019-12-29 19:40 | NUR ---
PATIENT RECEIVED SITTING UP IN BED. ASSESSMENT & VITAL SIGNS DONE. 7 DAY DRESSING TO LEFT HIP AREA C/D/I. AT BEDSIDE. THIS NURSE RETRIEVED BEDDING FOR TO USE IN RECLINER AT BEDSIDE. BED LOW. CALL LIGHT WITHIN REACH. WILL CONTINUE TO MONITOR.
[2019-12-29 19:42] VITALS: BP 96/49
--- NOTE | 2019-12-30 01:33 | NUR ---
I have reviewed this patient and I concur with the Shift Assessment completed by the Licensed Practical Nurse today this shift.
--- NOTE | 2019-12-30 02:14 | NUR ---
PATIENT EYES CLOSED. RESPIRATIONS 18 & EVEN. IN CHAIR AT BEDSIDE, EYES CLOSED. BED LOW. CALL LIGHT WITHIN REACH. WILL CONTINUE TO MONITOR.
[2019-12-30 06:12] LABS: HEMATOCRIT 32.1 % (42.0-54.0); HEMOGLOBIN 10.9 g/dL (13.5-17.5); LYMPHOCYTES 13.4 % (15-50); MCH 35.5 pg (26.0-34.0); MCV 104.6 fL (80.0-100.0); MEAN PLATELET VOLUME 8.2 fL (7.4-10.4); NEUTROPHILS 80.6 % (40-80); RBC 3.07 10x6/uL (4.20-6.10); RDW 13.2 % (11.5-14.5)
[2019-12-30 06:13] LABS: PLATELET COUNT 228 10x3/uL (130-400); WBC 9.6 10x3/uL (4.8-10.8)
[2019-12-30 06:28] LABS: CARBON DIOXIDE 28.8 mmol/L (21.0-32.0); CREATININE - SERUM 1.3 mg/dL (0.6-1.3); POTASSIUM - SERUM 3.8 mmol/L (3.5-5.1)
--- NOTE | 2019-12-30 07:20 | NUR ---
A/A/OX4. SITTING UP IN W/C AT BEDSIDE. NO REQUESTS AND DENIES ANY PAIN AT THIS TIME. AT BEDSIDE WITH HIM. [address] TO LEFT HIP C/D/I. CALL LIGHT AND FLUIDS IN REACH, BED IN LOW LOCKED POSITION.
--- NOTE | 2019-12-30 07:20 | NUR ---
A/A/OX4. SITTING UP IN W/C AT BEDSIDE. DENIES ANY PAIN AT PRESENT TIME AND NO REQUESTS VOICED. DRESSING TO LEFT HIP C/D/I. CALL LIGHT AND FLUIDS IN REACH, BED IN LOW LOCKED POSITION. AT BEDSIDE,
--- NOTE | 2019-12-30 07:20 | NUR ---
A/A/OX4. SITTING UP IN W/C AT BEDSIDE. DRESSING TO LEFT SHOULDER C/D/I AND DENIES ANY PAIN AT PRESENT TIME. NO REQUESTS VOICED. CALL LIGHT AND FLUIDS IN REACH AND BED IN LOW, LOCKED POSITION. AT BEDSIDE.
[2019-12-30 08:47] VITALS: BP 128/71
[2019-12-30 13:06] VITALS: Ht 175.3 cm; Wt 88.0 kg
--- NOTE | 2019-12-30 15:34 | NUR ---
I have reviewed this patient and I concur with the Shift Assessment completed by the Licensed Practical Nurse today this shift.
--- NOTE | 2019-12-30 20:00 | NUR ---
PATIENT RECEIVED SITTING UP ON SIDE OF BED. AT BEDSIDE. ASSESSMENT & VITAL SIGNS DONE. BED LOW. WALKER AT BEDSIDE. CALL LIGHT WITHIN REAH. WILL CONTINUE TO MONITOR.
[2019-12-30 20:05] VITALS: BP 91/62
--- NOTE | 2019-12-31 02:36 | NUR ---
I have reviewed this patient and I concur with the Shift Assessment completed by the Licensed Practical Nurse today this shift.
--- NOTE | 2019-12-31 03:41 | NUR ---
PATIENT AWAKE. PAIN MEDICATION GIVEN. NO BM AT THIS TIME. IN ROOM. BED LOW. CALL LIGHT WITHIN REACH. WILL CONTINUE TO MONITOR.
[2019-12-31 08:00] VITALS: BP 122/56
--- NOTE | 2019-12-31 08:00 | NUR ---
SHIFT ASSMT COMPLETED.SITTING UP ON SIDE OF BED FOR BREAKFAST.AMB TO BATHROOM WITH WALKER.DRSG TO LEFT HIP INTACT.
--- NOTE | 2019-12-31 12:00 | NUR ---
EATING LUNCH;CL IN REACH. AT BEDSIDE.
--- NOTE | 2019-12-31 16:00 | NUR ---
AMBULATING IN [place] WITH .
--- NOTE | 2019-12-31 19:10 | NUR ---
PATIENT RECEIVED SITTING UP ON SIDE OF BED. AT BEDSIDE. ASSESSMENT & VITAL SIGNS DONE. 7 DAY DRESSING TO LEFT KNEE C/D/I. BED LOW. CALL LIGHT WITHIN REACH. WILL CONTINUE TO MONITOR.
--- NOTE | 2019-12-31 19:40 | NUR ---
PATIENT RECEIVED SITTING UP ON SIDE OF BED. AT BEDSIDE. ASSESSMENT & VITAL SIGNS DONE. PAIN MEDICATION HAD LITTLE EFFECT AT THIS TIME. 01/28. CALL LIGHT WITHIN REACH. WILL CONTINUE TO MONITOR.
[2019-12-31 20:00] VITALS: BP 111/59
--- NOTE | 2020-01-01 01:33 | NUR ---
I have reviewed this patient and I concur with the Shift Assessment completed by the Licensed Practical Nurse today this shift.
--- NOTE | 2020-01-01 07:10 | NUR ---
SITTING UP ON SIDE OF BED. DENIES ANY NEEDS AND NO REQUESTS VOICED. CALL LIGHT AND FLUIDS WITHIN REACH. BED IN LOW LOCKED POSITION. AT BEDSIDE.
[2020-01-01 07:13] LABS: ANION GAP 11.4 mmol/L (8-16); CALCIUM 9.6 mg/dL (8.5-10.1); CARBON DIOXIDE 28.6 mmol/L (21.0-32.0); CREATININE - SERUM 1.1 mg/dL (0.6-1.3)
[2020-01-01 08:03] VITALS: BP 135/77
[2020-01-01] MEDS ORDERED: HYDROCODON-ACE1 EA10 PO (08:17)
--- NOTE | 2020-01-01 08:19 | RHP ---
PATIENT: JESUS ALBERTO KUMAR MEDICAL RECORD: [id number] ACCOUNT: [id number] LOCATION:[facility] D1115 : [birth year] ADMISSION DATE: 12/29/19 REHABILITATION HISTORY AND PHYSICAL EXAMINATION POST ADMISSION PHYSICIAN EXAMINATION ADMITTING DIAGNOSIS: Left total hip arthroplasty. HISTORY OF PRESENT ILLNESS: The patient is a 79-year-old gentleman who had an elective total hip. After numerous outpatient attempts for pain relief, he has been undergoing injections. He has gone to physical therapy. He has just not done well with any of this and he definitely needed to have something done about it. He has been followed by family practice during his acute stay. He has had some postop complications including urinary tract infection requiring a straight catheterization. He has had acute pain, acute blood loss anemia. He has had some bleeding problems. He has had to have a hematoma evacuated in past surgeries. He has been receiving physical therapy and he has been progressing slowly. He needs to be monitored closely with a history of bleeding disorder and postop hematomas. Medication adjustments are needed, pain control. We are monitoring his blood sugars, monitor his H&H closely, monitor his I's and O's closely. He has got postop urinary retention. He is on electrolyte protocol. He has got proximal muscle weakness, balance deficits, decreased activity tolerance, impaired mobility, decreased range of motion, impaired strength, limited safety awareness and he has medical complexity risk for falls. He has got low endurance. He fatigues easily. These are all barriers to his discharge home at this time. He is independent with ADLs and mobility prior to this. He is currently set-up for max assist for ADLs, mod assist for mobility with use of rolling walker. He and his family would like for him to be able to return home at his prior level of functioning or as close as possible. COMORBIDITIES: Include weakness, osteoarthritis of left hip, hypertension, gastroesophageal reflux disease status post lumbar laminectomy, acute pain, acute blood loss anemia. PAST MEDICAL HISTORY: Significant for neuropathy. He has got a history of spontaneous liver bleed in the past, hypertension, hyperlipidemia, tobacco use, malignant colon polyp, osteoarthritis, bleeding disorder. PAST SURGICAL HISTORY: Includes vasectomy. He has had a colon polyp removed. He has had evacuation of hematomas in the past, gallbladder surgery, removal of synovial cyst from his lumbar spine. He has had a laparotomy, shoulder surgery, elbow surgery, cataracts and laminectomy. ALLERGIES: No known drug allergies. CURRENT MEDICATIONS: Include polyethylene glycol 17 grams in 8 ounces of water b.i.d., Floranex 250 mg daily, he is on Cozaar 50 mg daily, TriCor 145 mg daily, Protonix 40 mg daily, Colace 100 mg b.i.d., Keflex 500 mg b.i.d., atorvastatin 40 mg at bedtime, Eliquis 2.5 mg b.i.d., and [place] 10/325 one tab every 6 hours p.r.n. HABITS: He does have a history of tobacco use in the past. FAMILY HISTORY: Noncontributory. HISTORY AND PHYSICAL [id number] JESUS ALBERTO KUMAR SOCIAL HISTORY: The patient hopes to return back home and get back to his prior level of functioning. REVIEW OF SYSTEMS: GENERAL: Does complain of weakness and fatigue. HEENT: Denies cold, cough, or congestion. CARDIOVASCULAR: Denies any chest pain. PHYSICAL EXAMINATION: VITAL SIGNS: Stable, afebrile. GENERAL: Well-developed elderly gentleman in no acute distress upon exam. HEENT: Normocephalic and atraumatic. Mucosa moist. NECK: Supple. No lymphadenopathy. LUNGS: Clear in upper roblero. No wheezing, rhonchi or rales. HEART: Regular rate and rhythm. No murmurs, rubs, or gallops. ABDOMEN: Soft, benign, and nondistended. Positive bowel sounds times 4. EXTREMITIES: No clubbing, cyanosis or edema. Postop area looks pretty good. NEUROLOGIC: Does have proximal muscle weakness. LABORATORY DATA: His white count is 9.6, H&H of 11 and 32, and platelet count is 228. Sodium 138, potassium 3.8, BUN and creatinine of 20 and 1.3 and blood sugar is noted to be 122. ASSESSMENT: A 79-year-old gentleman admitted to the rehab with a working diagnosis of status post total hip arthroplasty. The patient has potential to make improvement. We instituted the following multidisciplinary therapies including, but not limited to physical, occupational, respiratory, speech, nutritional services, prosthetics and orthotics. Given his complex medical condition and risk for more complications, rehabilitation services cannot be provided at a low level of care such as correction facility. PLAN: 1. Admit to [facility] for inpatient therapy to include the following disciplines: A. Physical therapy to improve gait, all transfer skills and bed mobility to a modified independent level. B. Occupational therapy to improve activities of daily living. C. Case management to help with discharge planning and placement options. D. Nutrition to assist with nutritional needs. E. Rehabilitation nursing to assist in monitoring the patient's underlying medical conditions and to assist with any type of bowel or bladder management. 2. The patient's current medication and medical care will be continued. 3. The patient will be placed on standard fall precautions. 4. We will watch for any signs of bleeding closely. 5. We will also watch for any signs of urinary retention and we will treat as needed. TRANSINT:[id number] Voice Confirmation ID: [id number] DOCUMENT ID: [id number] CONSTANTINO notes whether there has been none or any medical/functional change since admission: - No change since preadmission screen. HISTORY AND PHYSICAL [id number] JESUS ALBERTO KUMAR attests patient continues to be appropriate for IRF: - Continues to be appropriate. MOODY HENSLEY MD at 0819 CC: [id number] DICTATION DATE: 12/30/19 1149 TRAFFIC AGENT: 12/30/19 1343 ADM IN [facility] [address] [place] [id number]
[2020-01-01 08:48] LABS: HEMATOCRIT 30.3 % (42.0-54.0); HEMOGLOBIN 10.1 g/dL (13.5-17.5); LYMPHOCYTES 23.5 % (15-50); MCH 34.9 pg (26.0-34.0); MCHC 33.3 g/dL (31.0-37.0); MCV 104.8 fL (80.0-100.0); MEAN PLATELET VOLUME 9.2 fL (7.4-10.4); NEUTROPHILS 65.1 % (40-80); RBC 2.89 10x6/uL (4.20-6.10); RDW 13.3 % (11.5-14.5)
[2020-01-01 08:50] LABS: PLATELET COUNT 102 10x3/uL (130-400); WBC 5.3 10x3/uL (4.8-10.8)
--- NOTE | 2020-01-01 12:05 | NUR ---
PATIENT ADMITTED TO REHAB FROM ACUTE FLOOR. PCP IS DR. ROJAS. PATIENT HAS ALL DME NEEDED AT HOME. DISCHARGE PLANS ARE FOR PATIENT TO RETURN HOME WITH SPOUSE. WILL CONTINUE TO FOLLOW WITH PATIENT.
--- NOTE | 2020-01-01 13:47 | NUR ---
I have reviewed this patient and I concur with the Shift Assessment completed by the Licensed Practical Nurse today this shift.
--- NOTE | 2020-01-01 19:53 | NUR ---
PT IS RESTING IN BED WITH EYES OPEN. ALERT AND ORIENTED X 3. DENIES ACUTE PAIN OR DISCOMFORT AT THIS TIME. NO NEEDS VOICED. PT HAPPY TO BE GOING HOME TOMORROW. SR'S ARE UP X 2 IN BED. CALL LIGHT AND BEDSIDE TABLE ARE IN EASY REACH.
[2020-01-01 20:26] VITALS: BP 109/54
--- NOTE | 2020-01-01 22:03 | NUR ---
RESIDENT ASSISTED TO THE BATHROOM WITH MIN ASSIST. NO FURTHER NEEDS VOICED.
--- NOTE | 2020-01-02 01:32 | NUR ---
I have reviewed this patient and I concur with the Shift Assessment completed by the Licensed Practical Nurse today this shift.
--- NOTE | 2020-01-02 04:47 | NUR ---
PT IS RESTING IN BED WITH EYES CLOSED. NO DISTRESS NOTED.
--- NOTE | 2020-01-02 07:15 | NUR ---
A/A/OX4 SITTING ON SIDE OF BED. DENIES ANY NEEDS AT THIS TIME. STATES HE IS READY FOR DISCHARGE TODAY. CALL LIGHT AND FLUIDS IN REACH, BED IN LOW, LOCKED POSITION.
[2020-01-02 07:55] VITALS: BP 122/66
--- NOTE | 2020-01-02 10:03 | NUR ---
DISCHARGE INSTRUCTIONS REVIEWED WITH PT AND , THEY VERBALIZE UNDERSTANDING AND HAD NO QUESTIONS. DRESSING REMOVED FROM LEFT HIP WITH STERI STRIPS APPLIED AND NEW DRESSING PLACED. INCISION C/D/I. LEFT FLOOR VIA W/C WITH ALL PERSONAL BELONGINGS AND LEFT FACILTY VIA PRIVATE VEHICLE WITH HIS . PRESCRIPTIONS FOR ELIQUIS AND KEFLEX CALL TO [facility] AND WRITTEN PRESCRIPTION GIVEN FOR HYDROCODONE.
--- NOTE | 2020-01-02 10:08 | NUR ---
PATIENT DISCHARGING HOME TODAY WITH FAMILY. A SCRIPT FOR OUTPATIENT THERAPY GIVEN TO PATIENT . NO NEW DME NEEDED AT THIS TIME. DR. ROJAS 01/08/20 @ 11:40, DR. VALLE 01/15/20 @ 10:20.NO COMPARE DATA REVIEWED PER PATIENT REQUEST. ANASTACIO SIGNED, IMM SERVED AND EXPLAINED, ONE GIVEN TO PATIENT AND ONE FILED IN CHART. DISCHARGE INSTRUCTIONS FAXED TO PCP AND REVIEWED WITH PATIENT PER PRIMARY NURSE.
--- NOTE | 2020-01-02 12:42 | NUR ---
I have reviewed this patient and I concur with the Shift Assessment completed by the Licensed Practical Nurse today this shift.
== END 2020-01-02 10:42 | disposition home or self-care (01) | DRG 560 ==
LOC: D.REHAB 13:10
PROVIDERS: ADMIT Emergency Medicine; ATTEND Emergency Medicine
DX: Z47.1 Aftercare following joint replacement surgery (principal); D62 Acute posthemorrhagic anemia; Z96.642 Presence of left artificial hip joint; R53.1 Weakness; I10 Essential (primary) hypertension; K21.9 Gastro-esophageal reflux disease without esophagitis; M16.12 Unilateral primary osteoarthritis, left hip; E78.5 Hyperlipidemia, unspecified

== ENCOUNTER → 2020-02-22 09:44 | Outpatient (CLI) | payer MEDICARE, OTHER ==
[2019-12-30 13:06] VITALS: BMI 28.6
[2020-02-22 10:11] LABS: BASOPHILS 0.2 % (0-2); EOSINOPHILS 3.4 % (0-7); HEMATOCRIT 38.5 % (42.0-54.0); HEMOGLOBIN 12.8 g/dL (13.5-17.5); IMMATURE GRANULOCYTES 0.2 % (0-5); LYMPHOCYTES 23.2 % (15-50); MCH 33.6 pg (26.0-34.0); MCHC 33.2 g/dL (31.0-37.0); MEAN PLATELET VOLUME 8.8 fL (7.4-10.4); MONOCYTES 9.2 % (2-11); NEUTROPHILS 63.8 % (40-80); RBC 3.81 10x6/uL (4.20-6.10); RDW 13.2 % (11.5-14.5); WBC 5.9 10x3/uL (4.8-10.8)
[2020-02-22 10:12] LABS: PLATELET COUNT 259 10x3/uL (130-400)
[2020-02-22 11:13] LABS: ERYTHROCYTE SEDIMENTATION RATE 9 mm/hr (0-20)
== END | disposition home or self-care (01) ==
LOC: D.LABREF 09:44
PROVIDERS: ATTEND Orthopaedic Surgery
DX: M25.552 Pain in left hip (principal)

== ENCOUNTER → 2020-03-05 09:17 | Outpatient (CLI) | payer MEDICARE, OTHER ==
[2019-12-30 13:06] VITALS: BMI 28.6
== END | disposition home or self-care (01) ==
LOC: D.CT 09:17
PROVIDERS: ATTEND Orthopaedic Surgery
DX: M16.12 Unilateral primary osteoarthritis, left hip (principal)

== ENCOUNTER → 2020-08-22 14:23 | Outpatient (CLI) | payer MEDICARE, OTHER ==
[2019-12-30 13:06] VITALS: BMI 28.6
== END | disposition home or self-care (01) ==
LOC: D.LABREF 14:23
PROVIDERS: ATTEND Orthopaedic Surgery
DX: M16.12 Unilateral primary osteoarthritis, left hip (principal)

== ENCOUNTER 2020-09-24 05:00 | Inpatient (IN) | payer MEDICARE, OTHER ==
--- NOTE | 2020-09-20 12:14 | NUR ---
NOTIFIED BOBBY RN FOR PTS BP. RT- 141/69, LT- 153/137. PT STATED THAT THE OTHER DAY A NURSE HAD A HARD TIME GETTING THE LT SIDE TO READ. DENIES ANY OTHER PREVIOUS PROB WITH BP AND DOESN'T TAKE ANY MEDS FOR IT
[2020-09-20 12:21] LABS: BASOPHILS 0.2 % (0-2); EOSINOPHILS 2.1 % (0-7); HEMATOCRIT 44.6 % (42.0-54.0); HEMOGLOBIN 14.6 g/dL (13.5-17.5); IMMATURE GRANULOCYTES 0.2 % (0-5); LYMPHOCYTE ABS# 1.51 10x3/uL (1.32-3.57); LYMPHOCYTES 25.9 % (15-50); MCH 35.4 pg (26.0-34.0); MCHC 32.7 g/dL (31.0-37.0); MEAN PLATELET VOLUME 9.3 fL (7.4-10.4); MONOCYTES 7.5 % (2-11); NEUTROPHIL ABS# 3.74 10x3/uL (1.78-5.38); NEUTROPHILS 64.1 % (40-80); PLATELET COUNT 258 10x3/uL (130-400); RBC 4.13 10x6/uL (4.20-6.10); RDW 12.6 % (11.5-14.5); WBC 5.8 10x3/uL (4.8-10.8)
[2020-09-20 12:22] LABS: BILIRUBIN NEGATIVE (NEGATIVE); KETONE NEGATIVE (NEGATIVE); NITRITE NEGATIVE (NEGATIVE); UROBILINOGEN NORMAL mg/dL (< 2)
[2020-09-20 12:26] LABS: ANION GAP 13.1 mmol/L (8-16); CALCIUM 9.3 mg/dL (8.5-10.1); CARBON DIOXIDE 26.4 mmol/L (21.0-32.0); CREATININE - SERUM 1.3 mg/dL (0.6-1.3); POTASSIUM - SERUM 4.5 mmol/L (3.5-5.1)
[2020-09-20 12:30] LABS: APTT 29.6 SECONDS (22.8-39.4); INR 1.06 (0.85-1.17); PROTIME 12.7 SECONDS (11.6-15.0)
[~2020-09-24] VITALS: Ht 175.3 cm; Wt 91.2 kg
[2020-09-24] VITALS (15 sets, daily range): BP systolic 111–125; BP diastolic 59–76; BMI 29.7
[2020-09-24] MEDS ORDERED: PRESERVISION (05:44)
--- NOTE | 2020-09-24 07:40 | NUR ---
CAUTERY PAD PLACED ON RIGHT THIGH. PLASMA BLADE USED ON SETTING 6/8. AQUAMANTYS USED ON SETTING 170. CAUTERY PAD LOT #[id number] EXP. 02/18/2022
--- NOTE | 2020-09-24 09:08 | NUR ---
PT STATES HE IS NOT HURTING AND JUST FEELS GROGGY. PROVIDED ICE CHIPS. PT TOLEARTED. ICE PACK APPLIED. INCISION CDI. NO HEMATOMA NOTED. NO SATURATION AT THIS TIME. VSS.
--- NOTE | 2020-09-24 09:30 | NUR ---
RECEIVED TO ROOM 1208 VIA BED FROM PACU. A/O X3. DRESSING TO LEFT HIP DRY AND INTACT. AT BEDSIDE. SKIN INTACT WITHOUT REDNESS EXCEPT INCISION TO LEFT HIP. DENIES NEEDS.
--- NOTE | 2020-09-24 09:50 | NUR ---
REQUESTED AND GIVEN ONE HYDROCODONE PO FOR C/O LEFT HIP PAIN LEVEL 5. WILL MONITOR.
--- NOTE | 2020-09-24 11:30 | NUR ---
LUNCH SERVED IN ROOM. ATE ALL OF MEAL. CONTINUES AT BEDSIDE.
--- NOTE | 2020-09-24 11:31 | OP ---
PATIENT NAME: JESUS ALBERTO KUMAR MEDICAL RECORD: [id number] :44 LOCATION:D. D.1208 ADMISSION DATE:09/24/20 SURGEON: BABAK VALLE DO DATE OF OPERATION: 09/24/2020 PROCEDURE PERFORMED: Revision left total hip with polys and head swab. PREOPERATIVE DIAGNOSIS: Painful left total hip arthroplasty. POSTOPERATIVE DIAGNOSIS: Painful left total hip arthroplasty. INDICATION: Mr. Kumar is a 80-year-old male who underwent left total hip arthroplasty back in December of 2019. He did well until about a month where he started to get severe groin pain when he got up and walked or did anything. He had been dealing with this since January-February timeframe, he got to a point where it was unbearable for him and he wanted something done surgically. I worked him up for infection. All labs were normal and they were negative for any markers. He also had a CT scan. Everything was well positioned and appeared to be good, but not loose, well fixed, but he got to the point he was tired dealing with it. I informed him that we could switch the head out, I would release the psoas as it can be a source of groin pain and he was okay with that. Aware of the risks of this including loosening, infection, bleeding, damage to nerves and vessels in the area, continued pain, need for further surgery, blood clots, fracture, failure of implants and even and he signed the consent. SURGEON: Babak Valle DO DESCRIPTION OF PROCEDURE: The patient received a pain block in the preoperative area and taken to the operative suite, laid in the supine position, given general anesthetic, sedated and intubated. He was given 2 grams of Ancef, 80 mg gentamicin, gram of TXA. He was then moved to the [place] table, positioned, the left hip was prepped and draped in sterile fashion. Timeout was performed. Everyone was in agreement with the correct site, side, patient, and procedure. I then began making incision over the prior incision and made careful dissection down to the tensor fascia amaya fascia, incised the fascia. Then attempted to get down to the capsule, but there was an exorbitant amount of scar tissue. I cut through the scar tissue, got to the capsule and the capsule had regrown. It was a very, very thick. I then opened up the capsule, removed most of it with a Bovie and it appeared to be a problem, there was excessive scar tissue. Once I got the head free, I dislocated the hip, popped the head and neck off, checked the cup as well as the stem and they were both very solid. They were not loose at all. I then continued to remove the scar tissue that was around the entire acetabulum and the femur as it was very thick. I then released the psoas off the lesser trochanter and then impacted on a new head after cleaning off the trunnion, -3 neck dual mobility and reduced the hip. I then removed more scar tissue, coagulating bleeding with Aquamantys, put in 10% povidone-iodine and 500 mL of normal saline solution and let it sit for a few minutes. X-rays were taken. No fractures seen. Hips were equal length. I then irrigated out with over 2 liters normal saline. I then put in Edelmira and vancomycin and tobramycin powder. Brandon Lim, certified surgical horticultural nursery assistant, then closed the tensor fascia amaya fascia with #1 Vicryl in a [id number] and running locking stitch, closed the skin with 2-0 Vicryl in an inverted interrupted fashion, 4-0 Monocryl running on the skin and Prineo glue. Once this had dried, Telfa and Tegaderm as a bandage on the skin. He was then awakened and taken to recovery OPERATIVE REPORT [id number] JESUS ALBERTO KUMAR in stable condition. Blood loss approximately 150 mL. COMPLICATIONS: None. TRANSINT:[id number] Voice Confirmation ID: [id number] DOCUMENT ID: [id number] BABAK VALLE DO at 1131 CC: [id number] DICTATION DATE: 09/24/20 0847 SADDLE STITCH OPERATOR: 09/24/20 1032 ADM IN [facility] [address] [place] [address]
--- NOTE | 2020-09-24 15:22 | NUR ---
RESTING QUIETLY IN BED. DENIES NEEDS.
--- NOTE | 2020-09-24 15:50 | NUR ---
REQUESTED AND GIVEN ONE PERCOCET PO FOR C/O LEFT HIP PAIN LEVEL 7. WILL MONITOR.
--- NOTE | 2020-09-24 18:01 | NUR ---
UNABLE TO SWALLOW WELL THIS EVENING. REPORTED MOUTH VERY DRY. EVEN SOUP WOULDN'T GO DOWN WELL. AT BEDSIDE. DENIES NEEDS. NO CHANGES NOTED.
--- NOTE | 2020-09-24 19:24 | NUR ---
IN AND OUT CATH DONEUSING STERILE TECHNIQUE. 575 CLEAR YELLOW URINE RETURNED. BLADDER SCAN SHOWED 571.
--- NOTE | 2020-09-24 19:29 | NUR ---
PT A/O X4. RR E/U. NO S/S OF DISTRESS SEEN. PT AT BEDSIDE. PT SITTING UP ON THE SIDE OF BED. BED LOW CALL LIGHT WITHIN REACH. WILL CONTINUE TO MONITOR. PT DENIES ANY PAIN OR FURTHER NEEDS AT THIS TIME.
--- NOTE | 2020-09-24 22:43 | NUR ---
PT REPORTS HAVING URINATED 150ML. WILL CONTINUE TO MONITOR
[2020-09-25 00:26] VITALS: BP 91/49
--- NOTE | 2020-09-25 03:10 | NUR ---
PT HAS VOIDED 200ML URINE CLEAR AND YELLOW. WILL CONTINUE TO MONITOR.
--- NOTE | 2020-09-25 03:28 | NUR ---
PT COMPLAINS OF PAIN 7/10 IN LEFT HIP. PRN TYLENOL FOR PAIN PER REQUEST. PT STATES HE IS SCARED TO TAKE A PAIN PILL B/C IT MADE HIM FEEL WOOZY AND ABNORMAL. DR. ALBERT WAS NOTIFIED EARLIER TONIGHT AND LOWER DOSE HYDROCODONE WAS ORDERED. WILL REASSESS PAIN IN 30MIN. SPOKE WITH PT AND ABOUT PAIN CONTROL AND NOT LETTING IT GET OUT OF CONTROL.
[2020-09-25 04:00] VITALS: BP 95/41
[2020-09-25 05:00] LABS: HEMATOCRIT 39.4 % (42.0-54.0); HEMOGLOBIN 12.7 g/dL (13.5-17.5); MCH 34.6 pg (26.0-34.0); MCHC 32.2 g/dL (31.0-37.0); MCV 107.4 fL (80.0-100.0); MEAN PLATELET VOLUME 9.2 fL (7.4-10.4); RBC 3.67 10x6/uL (4.20-6.10); RDW 12.7 % (11.5-14.5); WBC 10.5 10x3/uL (4.8-10.8)
--- NOTE | 2020-09-25 06:12 | NUR ---
I have reviewed this patient and I concur with the Shift Assessment completed by the Licensed Practical Nurse today this shift.
--- NOTE | 2020-09-25 07:30 | NUR ---
SHIFT ASSESSMENT COMPLETED. PT AND ANAHI REQUEST COFFEE AND QTIPS FOR THE NASAL SWAB MEDS THAT THE OFFICE TOLD PT TO TAKE. THESE WERE GIVEN. CL IN REACH. PT ASSISTED TO BATHROOM. WITH NO DIFFICULTIES. SOME REDNESS AROUND LEFT HIP. LEFT PEDAL PULSE PALPABLE. SCD'S/TEDS ON. BED ALARM ON. UNSUCCESSFUL WITH BM. "LOTS OF GAS". PT WASHED HANDS/BRUSHED TEETH. NO FURTHER NEEDS AT THIS TIME. WCTM
[2020-09-25 08:29] VITALS: BP 103/51
--- NOTE | 2020-09-25 11:33 | NUR ---
PT SET CHAIR ALARM OFF. STATES THAT IT IS RIDICULOUS. EDUCATED THAT IT WAS FOR SAFETY PURPOSES. REQUESTS TO GO FOR A "WALK" DOWN THE [place]. I STATED WITH ASSISTANCE. HE POINTED TO HIS . I SAID YOU NEED TO GO WITH ME OR MY COWORKER FOR SAFETY'S SAKE. ASKED HIM TO LET ME FINISH UP SOMETHING REAL QUICK AND WE WOULD GO. THIS WAS ACCEPTABLE. WE WALKED TO WHERE "PT TOLD ME TO TURN AROUND" AND BACK TO THE ROOM. PT SITTING BACK ON CHAIR. CHAIR ALARM ON. CL IN REACH. WCTM
[2020-09-25 12:11] VITALS: BP 104/53
--- NOTE | 2020-09-25 12:20 | NUR ---
PT GOT UP OUT OF CHAIR. CHAIR ALARM GOING OFF. WENT TO BATHROOM WITHOUT USE OF HIS WALKER. PT STATES IT WAS 2 FT FROM THE CHAIR AND THE WALKER WAS ABOUT 10 FT. NO CALL FOR ASSISTANCE. WALKER WAS ON THE OTHER SIDE OF THE ROOM. PT STATES IT IS EASIER TO GET INTO THE BED FROM THE RIGHT HAND SIDE OF THE BED. PT AND ANAHI EDUCATED IT WAS ABOUT SAFETY THAT WE NEEDED TO HAVE BED/CHAIR ALARMS ON. VOICED UNDERSTANDING. BED ALARM SET. ANAHI SET OFF CHAIR ALARM. THIS WAS TURNED OFF. PT BED ALARM GOING OFF HE WAS REARRANGING HIMSELF IN BED WITH ANAHI HELPING HIM. REITTERATED THAT HE DOES NEED ASSISTANCE TO GET UP. JUST BECAUSE HE IS STEADY NOW DOESN'T MEAN THAT IN 10 MIN HE COULDN'T BE WOOZY. CL IN REACH. BED ALARM ON. NO FURHTER NEEDS VERBALIZED. [facility]
[2020-09-25 13:24] VITALS: Ht 175.3 cm; Wt 91.2 kg
--- NOTE | 2020-09-25 14:38 | NUR ---
MISUNDERSTOOD FAMILY. THOUGHT THEY WANTED TO GO VISIT SOMEONE OUTSIDE OR THAT THEY WANTED TO SWAP VISITORS. THIS WAS NOT THE CASE AND THEY WANTED TO WALK DOWN THE HALLWAY. I TOLD THEM THAT WAS FINE AND THAT I WOULD GO WITH THEM. OFFERED TO LET HIM SIGN A BED ALARM WAIVER SINCE HE WAS STANDING AND THE CHAIR ALARM WAS NOT GOING OFF. HE SAID THAT WAS "STUPID AND HE DIDN'T HAVE TO GO THROUGH THIS THE LAST TIME." I TRIED EDUCATING HIM BECAUSE OF HIS AGE, MEDS, AND RECENT SURGERY MAKE HIM A FALL RISK. PT AND SPOKE OVER ME SEEMING NOT TO HEAR. WALKED 150 FEET. ASSISTED TO CHAIR. CHAIR ALARM PLACED ON CHAIR AND TURNED ON. PT AND REQUESTED COFFEE. THIS WAS BROUGHT TO THEM. CL IN REACH. ANTIONE
--- NOTE | 2020-09-25 14:57 | NUR ---
JUST LEFT PT ROOM FROM GIVEN TYLENOL. CHAIR ALARM IS GOING OFF. PT STATES HE HAS TO USE THE BATHROOM. HE HANDED ME HIS COFFEE WHILE ANAHI WAS MOVING THE CHAIR OUT OF THE WAY. BENT OVER AT THE WAIST TO JAVA DEVELOPER HER COFFEE. WHICH HE HANDED TO ME. WENT TO BATHROOM AND THEN WASHED HIS HANDS. CL IN REACH. CHAIR ALARM ON. TM
--- NOTE | 2020-09-25 15:53 | NUR ---
JANTE MATAMOROS ASKED WHERE I LEFT PT. I STATED IN THE CHAIR. SHE TOLD ME HE WAS LAYING DOWN ON THE BED. I WENT TO THE ROOM TO SEE ABOUT PT PAIN LEVEL. PT WAS UP SHAVING. UNSURE HOW THE CHAIR ALARM HAS NOT GONE OFF IT WAS ON, ON THE CHAIR AND WORKING. NOTIFIED JAVIER GIBBS WITH BUILDING ARCHITECTURAL DESIGNER, Yuliya NAVARRETE RN PIN CHASER AND DR VALLE. PT AND STATE THAT "WE ARE BUSY AND THAT SINCE HE IS FINE THEN THEY DO NOT WANT TO BOTHER US." I VOICED UNDERSTANDING BUT THAT WE WERE HERE FOR SAFETY WELL AND THAT IT WAS IMPORTANT NOT TO FALL. I WOULD RATHER BE CLOSE BY TO WHERE I COULD HELP THAN BE SOMEWHERE ELSE AND NOT KNOW THEY NEEDED ASSISTANCE. THEY VOICED UNDERSTANDING. I TOLD THEM THIS WAS THE 4TH TIME I HAVE HAD TO HAVE A TALK WITH THEM AND THAT IF THEY WOULD CALL I WOULD MOST LIKELY BE ABLE TO GET TO THEM QUICKLY. ANAHI IN CHAIR. PT IN CHAIR WITH CHAIR ALARM ON AND WORKING IT "BEEPED" WHEN HE SAT DOWN. CL IN REACH. WCTM
[2020-09-25 16:12] VITALS: BP 119/58
--- NOTE | 2020-09-25 16:54 | MORECARE ---
CASE MANAGEMENT DISCHARGE SUMMARY PATIENT: JESUS ALBERTO KUMAR UNIT: [id number] ADM DATE: 09/24/20 AGE: 80 : 42 SEX: M ROOM/BED: D.1208 AUTHOR: JENNIFER,SAMEER PHYSICIAN: REFERRING PHYSICIAN: TAMI VALLE DO DATE OF SERVICE: 09/25/20 Case Management Discharge Planning Summary COMMENTS ENTERED DATE: 09/25/20 16:45 CT COMMENT TYPE: Discharge Planning REVIEWER: Sagrario Marquez CM MET WITH PATIENT VIA TELEPHONE AFTER OBTAINING VERBAL CONSENT. DISCUSSED AVAILABILITY/NEEDS OF HOME HEALTH, REHAB, AND MEDICAL EQUIPMENT.STATES HAS WALKER, SHOWER CHAIR AND GRABBER. LIVES AT HOME WITH . WOULD LIKE OUT PATIENT THERAPY AT [facility]. I WILL FAX AN ORDER TO THEM. ANTICIPATE DC IN THE MORNING. CM TO FOLLOW AND ASSIST NEEDED. DCP REVIEW SUMMARY ANTICIPATED D/C DATE: EXPECTED LOS : CASE STATUS: DCP Initiated INITIAL REVIEW: 09/24/2020 INITIAL REVIEWER: Sagrario Marquez FINAL DISCHARGE DISPOSITION: : FINAL REVIEWER: FINAL REVIEW DATE: DCP Focus Questions & Answers DCP Screen QUESTION: ANSWER High Risk Factors: : None Walking limitation: Patient stated self rated walking limitation present? : No Age: : 67 - 81 Prior living environment: : Lives with others Disability ranking: : Grade 2: Slight disability DCP Evaluation QUESTION: ANSWER Patient's ability to cope with chronic illness : d. No chronic illness Would patient like to participate in any Care Coordination programs (if applicable): : Not applicable Mental health screen: : No mental health history DCP Re-evaluation QUESTION: ANSWER Would patient like to participate in any Care Coordination programs (if applicable): : Not applicable PATIENT: JESUS ALBERTO KUMAR ENCOUNTER: [id number] MEDICAL RECORD#: [id number] ADMISSION DATE: 09/24/2020 DISCHARGE DATE: ATTENDING MD: TAMI MIN : AGE: 80 MARITAL STATUS: M DC PLAN ID: [id number] FACILITY: [facility] PRINTED ON: 09/25/20 16:54 CT All edits/amendments must be made on the electronic document DICTATION DATE: 09/25/201653 CRIME PREVENTION WORKER: ANGELITA 09/25/201653 RPT#: [id number] DC DATE: STATUS: ADM IN [facility] [address] [place] [address] END OF REPORT
[2020-09-25] MEDS ORDERED: ELIQUIS2.5 MG PO (17:01)
--- NOTE | 2020-09-25 18:43 | NUR ---
IV THERAPY REMOVED FROM RIGHT WRIST. DISCHARGE INSTRUCTIONS GIVEN. PT VERBALIZED UNDERSTANDING.
--- NOTE | 2020-09-25 18:53 | MORECARE ---
CASE MANAGEMENT DISCHARGE SUMMARY PATIENT: JESUS ALBERTO KUMAR UNIT: [id number] ADM DATE: 09/24/20 AGE: 80 : 42 SEX: M ROOM/BED: D.1208 AUTHOR: JENNIFER,SAMEER PHYSICIAN: REFERRING PHYSICIAN: TAMI VALLE DO DATE OF SERVICE: 09/25/20 Case Management Discharge Planning Summary COMMENTS ENTERED DATE: 09/25/20 16:45 CT COMMENT TYPE: Discharge Planning REVIEWER: Sagrario Marquez CM MET WITH PATIENT VIA TELEPHONE AFTER OBTAINING VERBAL CONSENT. DISCUSSED AVAILABILITY/NEEDS OF HOME HEALTH, REHAB, AND MEDICAL EQUIPMENT.STATES HAS WALKER, SHOWER CHAIR AND GRABBER. LIVES AT HOME WITH . WOULD LIKE OUT PATIENT THERAPY AT [facility]. I WILL FAX AN ORDER TO THEM. ANTICIPATE DC IN THE MORNING. CM TO FOLLOW AND ASSIST NEEDED. DCP REVIEW SUMMARY ANTICIPATED D/C DATE: EXPECTED LOS : CASE STATUS: DCP Initiated INITIAL REVIEW: 09/24/2020 INITIAL REVIEWER: Sagrario Marquez FINAL DISCHARGE DISPOSITION: : FINAL REVIEWER: FINAL REVIEW DATE: DCP Focus Questions & Answers DCP Screen QUESTION: ANSWER High Risk Factors: : None Walking limitation: Patient stated self rated walking limitation present? : No Age: : 67 - 81 Prior living environment: : Lives with others Disability ranking: : Grade 2: Slight disability DCP Evaluation QUESTION: ANSWER Patient's ability to cope with chronic illness : d. No chronic illness Would patient like to participate in any Care Coordination programs (if applicable): : Not applicable Mental health screen: : No mental health history DCP Re-evaluation QUESTION: ANSWER Would patient like to participate in any Care Coordination programs (if applicable): : Not applicable PATIENT: JESUS ALBERTO KUMAR ENCOUNTER: [id number] MEDICAL RECORD#: [id number] ADMISSION DATE: 09/24/2020 DISCHARGE DATE: 09/25/2020 ATTENDING MD: TAMI MIN : AGE: 80 MARITAL STATUS: M DC PLAN ID: [id number] FACILITY: [facility] PRINTED ON: 09/25/20 18:53 CT All edits/amendments must be made on the electronic document DICTATION DATE: 09/25/201852 AUTO TUNE UP MECHANIC: ANGELITA 09/25/201852 RPT#: [id number] DC DATE:09/25/20 STATUS: DIS IN [facility] [address] [place] [id number] END OF REPORT
== END 2020-09-25 18:44 | disposition home or self-care (01) | DRG 468 ==
LOC: D.OPS 05:00 → D.M3 07:01 → D.OPS 09:30 → D.M3 09:53 → D.OPS 11:00 → D.M3 09-25 18:44
PROVIDERS: ADMIT Orthopaedic Surgery; ATTEND Orthopaedic Surgery
PROC: 0SPB0JZ Removal of Synthetic Substitute from Left Hip Joint, Open Approach (ICD-10-PCS; 2020-09-24)
PROC: 0SRB04Z Replacement of Left Hip Joint with Ceramic on Polyethylene Synthetic Substitute, Open Approach (ICD-10-PCS; principal; 2020-09-24 07:00)
DX: T84.84XA Pain due to internal orthopedic prosthetic devices, implants and grafts, initial encounter (principal); Y83.9 Surgical procedure, unspecified as the cause of abnormal reaction of the patient, or of later complication, without mention of misadventure at the time of the procedure; I10 Essential (primary) hypertension; E78.5 Hyperlipidemia, unspecified; Z87.891 Personal history of nicotine dependence

== ENCOUNTER 2020-12-02 08:54 | Day surgery (SDC) | payer MEDICARE, OTHER ==
[~2020-12-02] VITALS: Ht 175.3 cm; Wt 92.5 kg
--- NOTE | ~2020-12-02 | HEMODYNAMI ---
PATIENT:JESUS ALBERTO KUMAR MEDICAL RECORD: [id number] : 44 LOCATION:[facility] ADMISSION DATE: 12/02/20 Generatedon:112:56 Patient name: JESUS ALBERTO KUMAR Patient #: [id number] SSN: : 1940 Date of study: 12/02/2020 Page: Of Hemodynamic Procedure Report Patient Data Patient Demographics Procedure consent was obtained First Name: JESUS ALBERTO Gender: Male Last Name: JOSÉ : 1940 [facility] Initial: TORRIE Age: 80 year(s) Patient #: [id number] Race: Additional ID: [id number] Contact details Address: [address] [place] [address] State: [place] City: [facility] Zip code: [address] Past Medical History Allergies: No known allergies Admission Admission Data Admission Date: 12/02/2020 Admission Time: 8:54 Arrival Date: 12/02/2020 Arrival Time: 0:00 Height (in.): 68.9 BSA: 2.08 (m2) Height (cm.): 175 BMI: 30.04 (kg/m2) Weight (lbs.): 202.83 Weight (kg.): 92 Lab Results Lab Result Date: 12/02/2020 Lab Result Time: 0:00 Biochemistry Name Units Result Min Max Creatinine mg/dl 1.3 --(---*)-- 0.6 1.3 eGFR ml/min 57 *-(----)-- 90 120 NONAFRICAN CBC Name Units Result Min Max Hematocrit % 43 --(*---)-- 42 54 Hemoglobin g/dl 14.3 --(*---)-- 13.5 17.5 Procedure Procedure Types Cath Procedure Diagnostic Procedure [facility] Sedation Charges Moderate Sedation 25-39 minutes Peripheral Cath Diagnostic Procedure Certified Registered Nurse Anesthetist Peripheral Procedures AFRO Diagnostic Procedure Description Procedure Date Procedure Date: 12/02/2020 Procedure Start Time: 12:13 Procedure End Time: 12:53 Procedure Staff Name Function Kobe Price MD Performing Physician Juan Cadet RT Monitor Nancy Rodriguez RT Scrub Ellis Lei RN Nurse Procedure Data Cath Procedure Fluoroscopy Diagnostic fluoroscopy Total fluoroscopy Time: 2.1 time: 2.1 min min Diagnostic fluoroscopy Total fluoroscopy dose: 292 dose: 292 mGy mGy Contrast Material Contrast Material Type Amount (ml) Isovue 300 99 Entry Location Entry Primary Successful Side Size Upsize Upsize Entry Closure Succe ssful Closure Location (Fr) 1 (Fr) 2 (Fr) Remarks Device Remarks Femoral Left 4 Fr 5 Fr unable to Exoseal artery gain entry into the left femoral artery. Femoral Right 5 Fr unable to artery gain entry on right side switching back to the left for one more try. Estimated blood loss: 5 ml Diagnostic catheters Device Type Used For End Catheter Placement DIAGNOSTIC UF 5Fr Abdominal catheter ([id number]) aortogram with runoff Procedure Complications No complications Procedure Medications Medication Administration Route Dosage 0.9% NaCl I.V. 100 ml/hr Heparin Flush Bag added to field 2 bags (1000units/500ml NS) Lidocaine 2% added to field 20 Versed I.V. 1 mg Fentanyl I.V. 50 mcg Versed I.V. 1 mg Fentanyl I.V. 50 mcg Versed I.V. 1 mg Hemodynamics Rest BSA: 2.08 (m2) HGB: 14.3 (g/dl) O2 Consumption: Estimated: 246.03 (ml/min) O2 Co nsumption indexed: Estimated:118.28 (ml/min/m) Heart Rate: 80 (bpm) Snapshots Pre Cath Intra NCS Post Cath Vital Signs Time Heart Resp SPO2 etCO2 NIBP (mmHg) Rhythm Pain Sedation Rate (ipm) (%) (mmHg) Status Level (bpm) 12:05:44 74 18 100 0 127/78(101) NSR 0 (11) 10(A) , No pain 12:09:58 70 16 100 27.7 122/66(100) NSR 0 (11) 10(A) , No pain 12:14:12 69 11 100 0 109/66(90) NSR 0 (11) 10(A) , No pain 12:18:24 71 12 99 27.7 110/65(87) NSR 0 (11) 10(A) , No pain 12:22:35 78 21 97 8.2 108/64(76) NSR 0 (11) 9(A) , No pain 12:26:47 70 10 97 24 106/64(83) NSR 0 (11) 9(A) , No pain 12:30:57 80 10 94 0 116/65(95) NSR 0 (11) 9(A) , No pain 12:35:09 74 12 95 0 114/59(78) NSR 0 (11) 9(A) , No pain 12:40:20 76 11 96 15.7 112/61(87) NSR 0 (11) 9(A) , No pain 12:44:34 78 10 95 0 93/58(73) NSR 0 (11) 9(A) , No pain 12:48:40 77 10 95 9 112/62(80) NSR 0 (11) 10(A) , No pain 12:52:54 78 10 96 12.7 105/60(84) NSR 0 (11) 10(A) , No pain Medications Time Medication Route Dose Verified Delivered Reason Notes Effe ctiveness by by 12:09:42 0.9% NaCl I.V. 100 Kobe Ellis used for ml/hr Albert Lei eligibility examiner 12:10:05 Heparin Flush added 2 Kobe Ellis used for Bag to bags Albert Lei eligibility examiner (1000units/500ml field NS) 12:10:14 Lidocaine 2% added 20ml Kobe Kobe for local to vial Albert Price MD anesthetic field 12:10:22 Versed I.V. 1 mg Kobe Ellis for Albert Lei RN sedation 12:10:28 Fentanyl I.V. 50 Kobe Ellis for mcg Albert Lei RN sedation 12:19:35 Versed I.V. 1 mg Kobe Ellis for Albert Lei RN sedation 12:19:38 Fentanyl I.V. 50 Kobe Ellis for rigoberto Lei RN sedation 12:39:40 Versed I.V. 1 mg Kobe Ellis for Albert Lei RN sedation Procedure Log Time Note 11:48:12 Informed consent obtained and on chart 11:48:31 Procedure Status Peripheral. 11:48:35 Ellis Lei RN sent for patient. Start room use. 11:48:36 Time tracking: Regular hours (M-F 7:00 - 5:00) 11:48:40 Plan of Care:Hemodynamics will remain stable., Cardiac rhythm will remain stable., Comfort level will be maintained., Respiratory function will remain adequate., Patient/ family verbilizes understanding of procedure., Procedure tolerated without complication., Recovers from procedure without complications.. 11:56:16 Patient allergic to No known allergies 11:56:25 H&P Date Dictated: 11/21/2020 Within 30 days and on chart., H&P Addendum completed by physician on day of procedure. (MUST COMPLETE FOR ALL OUTPATIENTS). 11:57:02 Lab Result : Creatinine 1.3 mg/dl 11:57:02 Lab Result : Hemoglobin 14.3 g/dl 11:57:02 Lab Result : eGFR NONAFRICAN 57 ml/min 11:57:02 Lab Result : Hematocrit 43 % 11:57:05 Lab results completed and on chart. 11:58:01 Patient received from Pre/Post Procedure Room to [facility] 1 Alert and oriented. Tansferred to table in Supine position. 11:58:06 Warm blankets applied, and analy hugger turned on for patient comfort. 11:58:07 Correct patient and procedure confirmed by team. 11:58:07 ECG and BP/O2 sat monitors applied to patient. 11:58:14 Patient Weight : 202.83 lbs 11:58:16 Patient Height : 68.9 inches 11:58:21 Arrival Date: 12/02/2020 12:00:00 AM 12:04:39 Vital chart was started 12:04:45 Baseline sample Acquired. 12:04:48 Rhythm: sinus rhythm 12:04:49 Full Disclosure recording started 12:04:50 Pre-procedure instructions explained to patient. 12:04:50 Pre-op teaching completed and patient verbalized understanding. 12:04:54 Family in patients room. 12:04:56 Patient NPO since Midnight. 12:05:01 Is the patient allergic to Iodine/contrast media? No. 12:05:05 Is patient on blood thinner?No 12:05:09 Patient diabetic? No. 12:05:11 ----Pre-sedation anethsthesia assessment.---- 12:05:14 Previous problem with sedation/anesthesia? No ? 12:05:15 Snore? No 12:05:16 Sleep apnea? No 12:05:17 Deviated septum? No 12:05:19 Opens mouth fully? Yes 12:05:20 Sticks out tongue? Yes 12:05:23 Airway obstruction? No ? 12:05:25 Dentures? No ? 12:07:01 Pre procedure: right dorsailis pedis pulse 1+ Palpable, but thready & weak; easily obliterated 12:07:05 Pre procedure: left dorsailis pedis pulse 1+ Palpable, but thready & weak; easily obliterated 12:07:09 Patient pain scale 0/10 ?. 12:07:15 IV patent on arrival in left antecubital with 0.9% NaCl at [facility]. 12:07:25 Bilateral groins area was prepped with chlora-prep and draped in sterile fashion 12:07:28 Alarms reviewed by R. N. 12:07:29 Sharps counted by scrub and verified by R.N. 12:07:31 Physician arrived 12:07:33 --------ALL STOP TIME OUT------ 12:07:33 Final Timeout: patient, procedure, and site verified with staff and physician. All members of the team are in agreement. 12:07:35 Bilateral groins site verified by team. 12:07:40 Fire Safety Assessment: A--An alcohol-based skin anteseptic being used preoperatively., B--The operative or invasive procedure is being performed above the xiphoid process or in the oropharynx., C--Open oxygen or nitrous oxide is being used. 12:07:43 Physical assessment completed. ASA score P 2 - A patient with mild systemic disease as per Kobe Price MD. 12:07:56 3a) 45-59 Moderately reduced kidney function. 12:08:12 Maximum allowable contrast dose (3.7 X eGFR X 0.75)158 ml. 12:08:16 Sedation plan: IV Moderate Sedation Medication:Versed, Fentanyl 12:08:33 Use device set Femoral Dx 12:08:34 ACIST Syringe (89352) opened to sterile field. 12:08:35 Bag Decanter () opened to sterile field. 12:08:37 Medline Cath Pack ([id number]) opened to sterile field. 12:08:38 ACIST Hand Control (44583) opened to sterile field. 12:08:39 ACIST Manifold (21570) opened to sterile field. 12:08:40 Tegaderm 4 x 4 (1626W) opened to sterile field. 12:08:42 SHEATH 5FR [place] (RHE120) opened to sterile field. 12:08:43 EMERALD Guide Wire (626-745) opened to sterile field. 12:09:35 Procedure type changed to Cath procedure, Diagnostic procedure, LHC, Sedation Charges, Moderate Sedation 25-39 minutes, Peripheral Cath Diagnostic Procedure, Certified Registered Nurse Anesthetist Peripheral Procedures, AFRO Diagnostic 12:09:42 0.9% NaCl 100 ml/hr I.V. was administered by Ellis Lei RN; used for procedure; Verbal order read back and verified. 12:10:05 Heparin Flush Bag (1000units/500ml NS) 2 bags added to field was administered by Ellis Lei RN; used for procedure; Verbal order read back and verified. 12:10:14 Lidocaine 2% 20ml vial added to field was administered by Kobe Price MD; for local anesthetic; Verbal order read back and verified. 12:10:22 Versed 1 mg I.V. was administered by Ellis Lei RN; for sedation; Verbal order read back and verified. 12:10:28 Fentanyl 50 mcg I.V. was administered by Ellis Lei RN; for sedation; Verbal order read back and verified. 12:13:14 Procedure started. 12:13:30 Zero performed for pressure channel P1 12:13:39 Local anesthetic to left femerol artery with Lidocaine 2% by Kobe Price MD.INITIAL ACCESS ONLY 12:19:35 Versed 1 mg I.V. was administered by Ellis Lei RN; for sedation; Verbal order read back and verified. 12:19:38 Fentanyl 50 mcg I.V. was administered by Ellis Lei RN; for sedation; Verbal order read back and verified. 12:19:51 MICROPUNCTURE 4FR [place] ([id number]) opened to sterile field. 12:29:42 MICROPUNCTURE 4FR [place] ([id number]) opened to sterile field. 12:38:43 A 4 Fr sheath was inserted into the Left Femoral arteryunable to gain entry into the left femoral artery. 12:39:34 Local anesthetic to right femoral artery with Lidocaine 2% by Kobe Price MD.ADDITIONAL ACCESS 12:39:40 Versed 1 mg I.V. was administered by Ellis Lei RN; for sedation; Verbal order read back and verified. 12:42:02 A 5 Fr sheath was inserted into the Right Femoral arteryunable to gain entry on right side switching back to the left for one more try. 12:42:18 Sheath upsized to a 5 Fr. 12:42:48 A DIAGNOSTIC UF 5Fr catheter ([id number]) was advanced over the wire and used for Abdominal aortogram with runoff. 12:43:10 Abdominal angiogram w/ runoff was performed. 12:43:14 Angiography was performed. 12:43:15 Abdominal Aortagram was performed. 12:45:17 Left leg runoff performed. 12:45:18 Right leg runoff performed. 12:48:25 Catheter exchanged over wire. 12:48:37 Sheath removed intact; hemostasis achieved with Exoseal to the Left Femoral artery. 12:48:40 Procedure ended.(Physican Out) 12:48:54 Fluoroscopy time 02.10 minutes. 12:49:00 Fluoroscopy dose: 292 mGy 12:49:00 Flurop Dose total: 292 12:49:08 Dose Area Product 31099 mGy/cm. 12:49:11 Contrast amount:Isovue 300 99ml. 12:49:16 Maximum allowable dose exceeded? No. 12:49:25 Sharps counted by scrub and verified by R.N. 12:49:26 Insertion/operative site no bleeding no hematoma. 12:49:29 Post-op/insertion site Left Femoral artery dressed using a 4 x 4 and Tegaderm. 12:49:33 Post left femerol artery:stable 12:49:35 Post Procedure Pulses reassessed and unchanged 12:49:40 Post procedure: left posterior tibial pulse 2+ Normal; easily identifiable; not easily obliterated. 12:50:09 Post-procedure physical assessment completed. ASA score P 2 - A patient with mild systemic disease as per Kobe Price MD. 12:51:23 Post procedure rhythm: unchanged. 12:51:27 Estimated blood loss: 5 ml 12:51:29 Post procedure instruction explained to patient.Patient verbalizes understanding. 12:51:30 Procedure and supply charges have been captured, reviewed, submitted and are correct. 12:52:23 EXOSEAL 5Fr (EX500) opened to sterile field. 12:53:13 Procedure Complication : No complications 12:53:22 Vital chart was stopped 12:53:29 AFRO Findings: PVD: MD will discuss options w/ pt 12:53:33 Operative report dictated upon procedure completion. 12:53:34 See physician's report for complete and final results. 12:53:35 Report given to Pre/Post Procedure Room. 12:53:39 Patient transfered to Pre/Post Procedure Room with Stretcher. 12:53:41 Procedure ended. 12:53:41 Full Disclosure recording stopped 12:53:44 End room use (Document Last) Device Usage Item Name Manufacture Quantity Catalog Hospital Part Current Minimal Lot# / Number Charge Number Stock Stock Serial# Code ACIST Syringe Acist 1 30226 [id number] [id number] [id number] 20 (37328) Medical Systems Inc Bag Decanter Microtek 1 2001S 634969 58192 014647 5 (2001S) Medical Inc. Medline Cath Medline 1 [id number] 887091 17632 224713 5 Pack ([id number]) ACIST Hand Acist 1 52904 077296 252905 154722 5 Control Medical (66083) Systems Inc ACIST Acist 1 35365 511690 514073 525473 5 Manifold Medical (54850) Systems Inc Tegaderm 4 x 3M 1 1626W 877162 634336 656195 5 4 (1626W) SHEATH 5FR Terumo 1 [id number] 320178 307683 781210 5 [place] (YFF788) EMERALD Guide Cardinal 1 502-455 847191 160870 681238 5 Wire Health (502-455) MICROPUNCTURE [place] [employer] 2 C88101 941717 489635 788252 5 4FR [place] (X42932) DIAGNOSTIC UF Cardinal 1 [id number] 297394 624529 314654 10 5Fr catheter Health ([id number]) EXOSEAL 5Fr Cardinal 1 EX500 832638 141130 601408 10 (EX500) Health Signature Audit [place] Stage Time Signature Unsigned Intra-Procedure 12/02/2020 Juan Cadet RT(R) 12:54:25 PM Intra-Procedure 12/02/2020 Ellis Lei RN 12:55:01 PM Intra-Procedure 12/02/2020 Kobe Price MD 12:56:02 PM [address] [place] [address]
[~2020-12-02 08:54] MED LIST changes: +PRESERVISION
[2020-12-02] MEDS ORDERED: BAYER CHEWABLE81 MG PO (09:31)
[2020-12-02 09:51] VITALS: BP 123/57; Ht 175.3 cm; Wt 92.5 kg
[2020-12-02 09:55] LABS: BASOPHILS 0.6 % (0-2); EOSINOPHILS 3.5 % (0-7); HEMOGLOBIN 14.3 g/dL (13.5-17.5); LYMPHOCYTES 21.6 % (15-50); MCH 34.9 pg (26.0-34.0); MCHC 33.2 g/dL (31.0-37.0); MCV 105.2 fL (80.0-100.0); MEAN PLATELET VOLUME 6.6 fL (7.4-10.4); NEUTROPHILS 64.3 % (40-80); RBC 4.09 10x6/uL (4.20-6.10); RDW 13.4 % (11.5-14.5)
[2020-12-02 10:01] LABS: PLATELET COUNT 269 10x3/uL (130-400)
[2020-12-02 10:13] LABS: ANION GAP 13.6 mmol/L (8-16); CALCIUM 9.6 mg/dL (8.5-10.1); CARBON DIOXIDE 26.9 mmol/L (21.0-32.0); CHOL - HDL RATIO 3.9 ratio (2.3-4.9); CREATININE - SERUM 1.3 mg/dL (0.6-1.3); POTASSIUM - SERUM 4.5 mmol/L (3.5-5.1)
--- NOTE | 2020-12-02 13:05 | NUR ---
PT REC'D TO CATH RECOVERY ROOM 9 VIA STRETCHER. MONITORS ESTAB. AT BS. SEE BIZTALK SOFTWARE DEVELOPER FLOWSHEETS. ALARMS ON AND C/L IN REACH.
--- NOTE | 2020-12-02 13:20 | NUR ---
DR. LANDRUM IN TO SEE PT AND HIS , UPDATE GIVEN AT LENGTH RE: AFRO RESULTS. ALL QUESTIONS ANSWERED.
--- NOTE | 2020-12-02 13:50 | NUR ---
PT RESTING QUIETLY, L GROIN SITE SOFT SOFT, NO S/S BLEEDING OR HEMATOMA. PULSES DOPPLERED, WEAK PALP. PT DENIES PAIN OR NEEDS. VSS. ALARMS ON AND C/L IN REACH.
--- NOTE | 2020-12-02 14:05 | NUR ---
L GROIN EXOSEAL SITE SOFT, NO S/S BLEEDING OR HEMATOMA. PULSES EASILY DOPPLERED. VSS. C/L IN REACH.
--- NOTE | 2020-12-02 14:20 | NUR ---
L GROIN SITE SOFT, C/D/I. HOB ELEVATED. SANDWICH TRAY AND WATER PROVIDED. AT BS ASSISTING PT. ALARMS ON AND C/L IN REACH.
--- NOTE | 2020-12-02 14:50 | NUR ---
L GROIN SITE SOFT, NO S/S BLEEDING OR HEMATOMA. PULSES DOPPLERED, WEAK PALP. VSS. PT DENIES PAIN OR NEEDS. TOLERATED DIET.
--- NOTE | 2020-12-02 15:08 | NUR ---
ALL DISCHARGE INSTRUCTIONS REVIEWED WITH PT AND HIS , INCLUDING RESTRICTIONS, MEDS AND F/U APPT - BOTH VERBALIZE UNDERSTANDING.
--- NOTE | 2020-12-02 15:15 | NUR ---
PIV D/C'D INTACT, DSG APPLIED. PT ALLOWED UP TO GET DRESSED AND GO TO BR INDEPENDENTLY.
--- NOTE | 2020-12-02 15:20 | NUR ---
PT D/C'D VIA WC TO PRIVATE VEHICLE WITH ALL PAPERWORK AND BELONGINGS.
== END 2020-12-02 15:20 | disposition home or self-care (01) ==
LOC: D.CATH 08:54
PROVIDERS: ATTEND Internal Medicine Cardiovascular Disease
DX: I70.213 Atherosclerosis of native arteries of extremities with intermittent claudication, bilateral legs (principal); I10 Essential (primary) hypertension